=== PATIENT | female | born 1950 | race Caucasian/White ===

== ENCOUNTER → 2018-10-01 | Outpatient (REF) | payer MEDICARE ==
[2018-10-01 11:55] LABS: BASO # 0.1 10^3/uL (0.0-0.2); BASO % 0.8 % (0.0-1.0); EOS # 0.4 10^3/uL (0.0-0.50); EOS % 4.9 % (0.0-3.0); IMMATURE GRANULOCYTE % 0.5 % (0-3.0); LYMPH # 2.9 10^3/uL (1.5-4.5); LYMPH % 37.3 % (24.0-44.0); MEAN CORPUSCULAR HEMOGLOBIN 31.3 pg (27.0-33.0); MEAN CORPUSCULAR HGB CONC 33.3 g/dl (32.0-36.5); MEAN CORPUSCULAR VOLUME 93.8 fl (80.0-96.0); MONO # 0.6 10^3/uL (0.0-0.8); MONO % 8.2 % (0.0-5.0); NEUTROPHILS # 3.7 10^3/uL (1.8-7.7); NEUTROPHILS % 48.3 % (36.0-66.0); PLATELET COUNT, AUTOMATED 350 10^3/uL (150-450); RED BLOOD COUNT 5.76 10^6/uL (4.00-5.40); RED CELL DISTRIBUTION WIDTH 13.6 % (11.5-14.5); WHITE BLOOD COUNT 7.7 10^3/uL (4.0-10.0)
[2018-10-01 12:24] LABS: ALBUMIN 3.7 GM/DL (3.2-5.2); ALBUMIN/GLOBULIN RATIO 1.12 (1.00-1.93); ALKALINE PHOSPHATASE 89 U/L (45-117); ALT/SGPT 22 U/L (12-78); ANION GAP 4 MEQ/L (8-16); AST/SGOT 16 U/L (7-37); BILIRUBIN,TOTAL 0.5 MG/DL (0.2-1.0); BLOOD UREA NITROGEN 6 MG/DL (7-18); CALCIUM LEVEL 9.1 MG/DL (8.8-10.2); CARBON DIOXIDE LEVEL 31 MEQ/L (21-32); CHLORIDE LEVEL 101 MEQ/L (98-107); CHOLESTEROL LEVEL 250 MG/DL (<200); CREATININE FOR GFR 0.57 MG/DL (0.55-1.30); GLOMERULAR FILTRATION RATE > 60.0 (>45); GLUCOSE, FASTING 93 MG/DL (70-100); HDL CHOLESTEROL 58 MG/DL (>40); LDL CHOLESTEROL 169 MG/DL (<100); NON-HDL-C 192 MG/DL; POTASSIUM SERUM 5.1 MEQ/L (3.5-5.1); SODIUM LEVEL 136 MEQ/L (136-145); TRIGLYCERIDES LEVEL 116 MG/DL (<150)
[2018-10-01 12:57] LABS: ESTIMATED AVERAGE GLUCOSE 131 MG/DL (60-110); HEMOGLOBIN A1c 6.2 %
== END ==
LOC: M LABDRAW1 09:34
DX: Z79.899 Other long term (current) drug therapy (principal); E03.9 Hypothyroidism, unspecified; E78.00 Pure hypercholesterolemia, unspecified
CPT/HCPCS: 84443

== ENCOUNTER 2022-11-18 04:54 | Inpatient (IN) | payer MEDICARE, OTHER ==
[~2022-11-18] VITALS: Ht 152.4 cm; Wt 53.7 kg
[2022-11-18] MEDS ORDERED: methylPREDNISolone 125MG 2ML VIAL IV ONE (05:05)
[2022-11-18] MEDS ORDERED: IPRATROPIUM 0.5MG/ALBUTEROL 2.5MG INH SOL UD 3ML (DUONEB) NEB ONE (05:05)
[2022-11-18 06:31] LABS: BASO % 0.5 % (0.0-1.0); EOS # 0.3 10^3/uL (0.0-0.5); EOS % 3.9 % (0.0-3.0); HEMATOCRIT 34.4 % (36.0-47.0); HEMOGLOBIN 11.3 g/dl (12.0-15.5); LYMPH # 1.5 10^3/uL (1.5-5.0); LYMPH % 17.4 % (24.0-44.0); MEAN CORPUSCULAR HEMOGLOBIN 29.6 pg (27.0-33.0); MEAN CORPUSCULAR HGB CONC 32.8 g/dl (32.0-36.5); MEAN CORPUSCULAR VOLUME 90.1 fl (80.0-96.0); MONO # 0.8 10^3/uL (0.0-0.8); MONO % 9.5 % (2.0-8.0); NEUTROPHILS % 68.1 % (36.0-66.0); PLATELET COUNT, AUTOMATED 346 10^3/uL (150-450); RED BLOOD COUNT 3.82 10^6/uL (4.00-5.40); WHITE BLOOD COUNT 8.8 10^3/uL (4.0-10.0)
[2022-11-18 06:55] LABS: ALBUMIN 3.1 G/DL (3.2-5.2); ALKALINE PHOSPHATASE 78 U/L (46-116); ALT/SGPT 13 U/L (7.0-40); AST/SGOT 19 U/L (<34); BILIRUBIN,TOTAL < 0.2 MG/DL (0.3-1.2); BLOOD UREA NITROGEN 16 MG/DL (9-23); CALCIUM LEVEL 8.8 MG/DL (8.3-10.6); CARBON DIOXIDE LEVEL 26 MMOL/L (20-31); CHLORIDE LEVEL 103 MMOL/L (98-107); CREATININE FOR GFR 0.64 MG/DL (0.55-1.30); GLOMERULAR FILTRATION RATE > 60.0 (>39); GLUCOSE, FASTING 97 MG/DL (74-106); MAGNESIUM LEVEL 1.8 MG/DL (1.8-2.4); POTASSIUM SERUM 4.5 MMOL/L (3.5-5.1); SODIUM LEVEL 136 MMOL/L (136-145); TOTAL PROTEIN 6.5 G/DL (5.7-8.2)
[2022-11-18] MEDS ORDERED: ISOVUE-370 76% 100ML VIAL As Ordered ONE (07:45)
[2022-11-18] MEDS ORDERED: ALBU8.5H INH (08:57)
[2022-11-18] MEDS ORDERED: LISI30TA4 PO (08:57)
[2022-11-18] MEDS ORDERED: METO1TAB7 PO (08:57)
[2022-11-18] MEDS ORDERED: ATOR1TAB21 PO (08:57)
[2022-11-18] MEDS ORDERED: HOME MED LIST COMPLETE! XX SCH (10:20)
[2022-11-18] MEDS ORDERED: ALBUTEROL SULFATE 2.5MG/0.5ML INH NEB SOLN NEB PRN (12:10)
[2022-11-18] MEDS ORDERED: MOM 30ML SUSPENSION UDC PO PRN (12:10)
[2022-11-18] MEDS: ACETAMINOPHEN TAB 650MG DOSE (2X325MG) PO PRN (12:55)
[2022-11-18] MEDS: methylPREDNISolone 125MG 2ML VIAL IV SCH ×2 (12:59→20:01)
[2022-11-18] MEDS: METOPROLOL SUCC (TopROL XL) 50MG **XL** TAB PO SCH (13:01)
[2022-11-18] MEDS: IPRATROPIUM 0.5MG/ALBUTEROL 2.5MG INH SOL UD 3ML (DUONEB) NEB SCH ×2 (13:02→19:13)
[2022-11-18 13:50] VITALS: BP 152/60
[2022-11-18] MEDS: NICOTINE 7 MG/24 HR TRANSDERMAL TD SCH (16:09)
[2022-11-18] MEDS: ATORVASTATIN 20 MG TAB PO SCH (20:02)
[2022-11-18 20:40] VITALS: BP 134/56
[2022-11-19] MEDS: IPRATROPIUM 0.5MG/ALBUTEROL 2.5MG INH SOL UD 3ML (DUONEB) NEB SCH ×4 (01:23→19:11)
[2022-11-19] MEDS: ACETAMINOPHEN TAB 650MG DOSE (2X325MG) PO PRN ×2 (02:34→20:36)
[2022-11-19 05:00] VITALS: BP 142/54
[2022-11-19] MEDS: methylPREDNISolone 125MG 2ML VIAL IV SCH ×2 (06:07→14:51)
[2022-11-19 07:05] LABS: HEMATOCRIT 33.5 % (36.0-47.0); HEMOGLOBIN 10.7 g/dl (12.0-15.5); MEAN CORPUSCULAR HEMOGLOBIN 28.8 pg (27.0-33.0); MEAN CORPUSCULAR HGB CONC 31.9 g/dl (32.0-36.5); MEAN CORPUSCULAR VOLUME 90.1 fl (80.0-96.0); PLATELET COUNT, AUTOMATED 371 10^3/uL (150-450); RED BLOOD COUNT 3.72 10^6/uL (4.00-5.40)
[2022-11-19 07:39] LABS: BLOOD UREA NITROGEN 24 MG/DL (9-23); CALCIUM LEVEL 9.2 MG/DL (8.3-10.6); CARBON DIOXIDE LEVEL 24 MMOL/L (20-31); CHLORIDE LEVEL 102 MMOL/L (98-107); CREATININE FOR GFR 0.73 MG/DL (0.55-1.30); GLOMERULAR FILTRATION RATE > 60.0 (>39); GLUCOSE, FASTING 146 MG/DL (74-106); MAGNESIUM LEVEL 1.9 MG/DL (1.8-2.4); POTASSIUM SERUM 4.2 MMOL/L (3.5-5.1); SODIUM LEVEL 135 MMOL/L (136-145)
[2022-11-19] MEDS: METOPROLOL SUCC (TopROL XL) 50MG **XL** TAB PO SCH (08:39)
[2022-11-19] MEDS: NICOTINE 7 MG/24 HR TRANSDERMAL TD SCH (08:40)
[2022-11-19] MEDS: ENOXAPARIN 40MG/0.4ML SYRINGE (J1650 PER 10MG) SC SCH (08:40)
[2022-11-19 09:00] VITALS: O2SAT 91
[2022-11-19 09:51] LABS: CHOLESTEROL LEVEL 126 MG/DL (<200); CHOLESTEROL RISK RATIO 2.54 (<5); HDL CHOLESTEROL 49.5 MG/DL (>40); LDL CHOLESTEROL 61.5 MG/DL (<100); NON-HDL-C 77 MG/DL; TRIGLYCERIDES LEVEL 75 MG/DL (<150)
[2022-11-19 11:11] LABS: HEMOGLOBIN A1c 5.5 % (4.0-6.0)
[2022-11-19 14:00] VITALS: BP 126/58
[2022-11-19] MEDS: ATORVASTATIN 20 MG TAB PO SCH (20:35)
[2022-11-19 21:10] VITALS: BP 142/56
[2022-11-20] MEDS: IPRATROPIUM 0.5MG/ALBUTEROL 2.5MG INH SOL UD 3ML (DUONEB) NEB SCH ×4 (01:27→20:28)
[2022-11-20] MEDS ORDERED: methylPREDNISolone 125MG 2ML VIAL IV SCH (03:00)
[2022-11-20 04:50] VITALS: BP 132/60
[2022-11-20 05:48] LABS: HEMATOCRIT 32.2 % (36.0-47.0); HEMOGLOBIN 10.4 g/dl (12.0-15.5); MEAN CORPUSCULAR HEMOGLOBIN 28.9 pg (27.0-33.0); MEAN CORPUSCULAR HGB CONC 32.3 g/dl (32.0-36.5); MEAN CORPUSCULAR VOLUME 89.4 fl (80.0-96.0); PLATELET COUNT, AUTOMATED 328 10^3/uL (150-450); WHITE BLOOD COUNT 11.1 10^3/uL (4.0-10.0)
[2022-11-20] MEDS: ACETAMINOPHEN TAB 650MG DOSE (2X325MG) PO PRN ×3 (06:09→19:54)
[2022-11-20 06:20] LABS: ALBUMIN 2.9 G/DL (3.2-5.2); ALKALINE PHOSPHATASE 63 U/L (46-116); ALT/SGPT 15 U/L (7.0-40); AST/SGOT 25 U/L (<34); BILIRUBIN,TOTAL 0.3 MG/DL (0.3-1.2); BLOOD UREA NITROGEN 21 MG/DL (9-23); CALCIUM LEVEL 8.7 MG/DL (8.3-10.6); CARBON DIOXIDE LEVEL 25 MMOL/L (20-31); CHLORIDE LEVEL 98 MMOL/L (98-107); GLOMERULAR FILTRATION RATE > 60.0 (>39); GLUCOSE, FASTING 155 MG/DL (74-106); POTASSIUM SERUM 4.1 MMOL/L (3.5-5.1); SODIUM LEVEL 131 MMOL/L (136-145); TOTAL PROTEIN 5.9 G/DL (5.7-8.2)
[2022-11-20] MEDS: NS 1,000 ML IV SCH ×3 (08:22→23:42)
[2022-11-20] MEDS: ENOXAPARIN 40MG/0.4ML SYRINGE (J1650 PER 10MG) SC SCH ×2 (08:22→08:40)
[2022-11-20] MEDS: predniSONE 20 MG TAB PO SCH (08:22)
[2022-11-20] MEDS: NICOTINE 7 MG/24 HR TRANSDERMAL TD SCH (08:23)
[2022-11-20] MEDS: METOPROLOL SUCC (TopROL XL) 50MG **XL** TAB PO SCH (09:00)
[2022-11-20] MEDS: ATORVASTATIN 20 MG TAB PO SCH (19:53)
[2022-11-20 20:28] VITALS: O2SAT 97
[2022-11-20 23:13] VITALS: BP 188/70
[2022-11-20] MEDS ORDERED: TEMAZEPAM 7.5 MG CAP PO PRN (23:25)
[2022-11-20] MEDS ORDERED: MORPHINE 2 MG/ML 1ML VIAL IV PRN (23:25)
[2022-11-20] MEDS: traMADol 50 MG TAB PO PRN (23:43)
[2022-11-21] VITALS (7 sets, daily range): BP systolic 130–192; BP diastolic 60–92
[2022-11-21] MEDS: IPRATROPIUM 0.5MG/ALBUTEROL 2.5MG INH SOL UD 3ML (DUONEB) NEB SCH ×4 (02:03→20:28)
[2022-11-21] MEDS ORDERED: LORazepam 2 MG/ML VIAL IV ONE (04:45)
[2022-11-21 05:35] LABS: HEMATOCRIT 33.6 % (36.0-47.0); HEMOGLOBIN 10.5 g/dl (12.0-15.5); MEAN CORPUSCULAR HEMOGLOBIN 28.4 pg (27.0-33.0); MEAN CORPUSCULAR HGB CONC 31.3 g/dl (32.0-36.5); MEAN CORPUSCULAR VOLUME 90.8 fl (80.0-96.0); PLATELET COUNT, AUTOMATED 373 10^3/uL (150-450); WHITE BLOOD COUNT 12.4 10^3/uL (4.0-10.0)
[2022-11-21] MEDS: METOPROLOL SUCC (TopROL XL) 50MG **XL** TAB PO SCH (05:51)
[2022-11-21 06:19] LABS: ALKALINE PHOSPHATASE 57 U/L (46-116); ALT/SGPT 21 U/L (7.0-40); AST/SGOT 31 U/L (<34); BILIRUBIN,TOTAL 0.2 MG/DL (0.3-1.2); BLOOD UREA NITROGEN 16 MG/DL (9-23); CALCIUM LEVEL 8.3 MG/DL (8.3-10.6); CARBON DIOXIDE LEVEL 24 MMOL/L (20-31); CHLORIDE LEVEL 103 MMOL/L (98-107); CREATININE FOR GFR 0.53 MG/DL (0.55-1.30); GLOMERULAR FILTRATION RATE > 60.0 (>39); GLUCOSE, FASTING 100 MG/DL (74-106); POTASSIUM SERUM 4.1 MMOL/L (3.5-5.1); SODIUM LEVEL 134 MMOL/L (136-145); TOTAL PROTEIN 5.9 G/DL (5.7-8.2)
[2022-11-21] MEDS ORDERED: ISOSORBIDE DIN. (ISORDIL) 20 MG TAB PO SCH ×2 (09:00→21:00)
[2022-11-21] MEDS: NICOTINE 7 MG/24 HR TRANSDERMAL TD SCH (09:00)
[2022-11-21] MEDS ORDERED: AMLO1TAB25 PO (09:17)
[2022-11-21] MEDS ORDERED: PRED10TA2 PO (09:17)
[2022-11-21] MEDS ORDERED: ALBU6.7H6 INH (09:17)
[2022-11-21] MEDS ORDERED: NICO7PA TD (09:17)
[2022-11-21] MEDS ORDERED: DOXY100C3 PO (09:17)
[2022-11-21] MEDS ORDERED: FLUT11IN INH (09:18)
[2022-11-21] MEDS: ACETAMINOPHEN TAB 650MG DOSE (2X325MG) PO PRN (10:19)
[2022-11-21] MEDS: predniSONE 20 MG TAB PO SCH (10:20)
[2022-11-21] MEDS ORDERED: DOXY100T PO (11:36)
[2022-11-21] MEDS ORDERED: PRED20TA PO (11:36)
[2022-11-21] MEDS ORDERED: ALBU8.5H INH (11:36)
[2022-11-21] MEDS: ATORVASTATIN 20 MG TAB PO SCH (20:28)
[2022-11-21] MEDS: traMADol 50 MG TAB PO PRN (20:40)
[2022-11-22] VITALS (9 sets, daily range): BP systolic 103–144; BP diastolic 52–74; O2SAT 97–100
[2022-11-22] MEDS: IPRATROPIUM 0.5MG/ALBUTEROL 2.5MG INH SOL UD 3ML (DUONEB) NEB SCH ×4 (01:09→19:37)
[2022-11-22] MEDS: ACETAMINOPHEN TAB 650MG DOSE (2X325MG) PO PRN ×2 (04:52→20:32)
[2022-11-22] MEDS ORDERED: LIDOCAINE 1% MDV 20ML VIAL As Ordered ONE (08:24)
[2022-11-22] MEDS ORDERED: METOPROLOL SUCC (TopROL XL) 50MG **XL** TAB PO SCH (09:00)
[2022-11-22] MEDS: METOPROLOL SUCC (TopROL XL) 50MG **XL** TAB PO SCH (10:12)
[2022-11-22] MEDS: predniSONE 20 MG TAB PO SCH (10:13)
[2022-11-22] MEDS: NICOTINE 7 MG/24 HR TRANSDERMAL TD SCH (10:15)
[2022-11-22] MEDS: traMADol 50 MG TAB PO PRN (10:45)
[2022-11-22] MEDS ORDERED: methylPREDNISolone 125MG 2ML VIAL IV ONE (13:35)
[2022-11-22] MEDS ORDERED: ISOVUE-370 76% 100ML VIAL As Ordered ONE (13:37)
[2022-11-22] MEDS ORDERED: PERCOCET 5MG/325MG TAB PO PRN (13:40)
[2022-11-22] MEDS: ATORVASTATIN 20 MG TAB PO SCH (20:28)
[2022-11-23] MEDS: ACETAMINOPHEN TAB 650MG DOSE (2X325MG) PO PRN ×2 (00:40→07:48)
[2022-11-23] MEDS: IPRATROPIUM 0.5MG/ALBUTEROL 2.5MG INH SOL UD 3ML (DUONEB) NEB SCH ×2 (00:49→07:19)
[2022-11-23 05:52] VITALS: BP 133/58
[2022-11-23 06:17] LABS: BASO % 0.2 % (0.0-1.0); HEMATOCRIT 30.9 % (36.0-47.0); LYMPH # 0.7 10^3/uL (1.5-5.0); MEAN CORPUSCULAR HEMOGLOBIN 28.7 pg (27.0-33.0); MEAN CORPUSCULAR HGB CONC 32.4 g/dl (32.0-36.5); MEAN CORPUSCULAR VOLUME 88.8 fl (80.0-96.0); MONO # 0.2 10^3/uL (0.0-0.8); NEUTROPHILS # 4.7 10^3/uL (1.5-8.5); NEUTROPHILS % 82.9 % (36.0-66.0); PLATELET COUNT, AUTOMATED 311 10^3/uL (150-450); RED BLOOD COUNT 3.48 10^6/uL (4.00-5.40); WHITE BLOOD COUNT 5.7 10^3/uL (4.0-10.0)
[2022-11-23 07:03] LABS: BLOOD UREA NITROGEN 11 MG/DL (9-23); CALCIUM LEVEL 8.1 MG/DL (8.3-10.6); CARBON DIOXIDE LEVEL 29 MMOL/L (20-31); CHLORIDE LEVEL 99 MMOL/L (98-107); CREATININE FOR GFR 0.49 MG/DL (0.55-1.30); GLOMERULAR FILTRATION RATE > 60.0 (>39); GLUCOSE, FASTING 133 MG/DL (74-106); POTASSIUM SERUM 4.5 MMOL/L (3.5-5.1); SODIUM LEVEL 134 MMOL/L (136-145)
[2022-11-23 07:47] VITALS: BP 133/58
[2022-11-23] MEDS: METOPROLOL SUCC (TopROL XL) 50MG **XL** TAB PO SCH (07:47)
[2022-11-23] MEDS: NICOTINE 7 MG/24 HR TRANSDERMAL TD SCH (07:48)
[2022-11-23 10:37] VITALS: O2SAT 96
== END 2022-11-23 13:29 | disposition home health service (06) | DRG 181 ==
LOC: M ED 04:54 → M ED INP 12:09 → ENRESERV 13:27 → M MSPAV 13:58
PROVIDERS: ADMIT Internal Medicine; ATTEND General Practice
PROC: 0BBC3ZX Excision of Right Upper Lung Lobe, Percutaneous Approach, Diagnostic (ICD-10-PCS; principal; 2022-11-22 08:30)
DX: C34.11 Malignant neoplasm of upper lobe, right bronchus or lung (principal); T85.43XA Leakage of breast prosthesis and implant, initial encounter; J44.1 Chronic obstructive pulmonary disease with (acute) exacerbation; C79.51 Secondary malignant neoplasm of bone; F17.200 Nicotine dependence, unspecified, uncomplicated; I10 Essential (primary) hypertension; E78.5 Hyperlipidemia, unspecified; R73.03 Prediabetes; E03.9 Hypothyroidism, unspecified; Z79.899 Other long term (current) drug therapy; Z66 Do not resuscitate; Y83.1 Surgical operation with implant of artificial internal device as the cause of abnormal reaction of the patient, or of later complication, without mention of misadventure at the time of the procedure; I70.0 Atherosclerosis of aorta; I25.10 Atherosclerotic heart disease of native coronary artery without angina pectoris; R63.4 Abnormal weight loss

== ENCOUNTER 2022-12-01 10:37 | Outpatient (RCR) | payer MEDICARE ==
[~2022-12-01 10:37] MED LIST: ALBU6.7H6 INH; ALBU8.5H INH; AMLO1TAB25 PO; ATOR1TAB21 PO; DOXY100C3 PO; DOXY100T PO; FLUT11IN INH; LISI30TA4 PO; METO1TAB7 PO; NICO7PA TD; PRED10TA2 PO; PRED20TA PO
[2022-12-08] MEDS ORDERED: AMLO1TAB25 PO (01:11)
[2022-12-08] MEDS ORDERED: ALBU8.5H INH ×2 (01:11)
== END 2022-12-19 ==
LOC: M ONCR 10:37
PROVIDERS: ATTEND General Practice
DX: C34.11 Malignant neoplasm of upper lobe, right bronchus or lung (principal)

== ENCOUNTER 2022-12-07 17:12 | Inpatient (IN) | payer MEDICARE ==
[~2022-12-07] VITALS: Ht 152.4 cm; Wt 50.2 kg
[2022-12-07 18:32] LABS: BASO # 0.1 10^3/uL (0.0-0.2); BASO % 0.6 % (0.0-1.0); EOS # 0.2 10^3/uL (0.0-0.5); EOS % 2.8 % (0.0-3.0); HEMATOCRIT 30.9 % (36.0-47.0); HEMOGLOBIN 9.9 g/dl (12.0-15.5); LYMPH # 1.4 10^3/uL (1.5-5.0); LYMPH % 16.9 % (24.0-44.0); MEAN CORPUSCULAR HEMOGLOBIN 29.4 pg (27.0-33.0); MEAN CORPUSCULAR VOLUME 91.7 fl (80.0-96.0); MONO # 0.6 10^3/uL (0.0-0.8); MONO % 7.3 % (2.0-8.0); NEUTROPHILS % 71.6 % (36.0-66.0); PLATELET COUNT, AUTOMATED 349 10^3/uL (150-450); RED BLOOD COUNT 3.37 10^6/uL (4.00-5.40); WHITE BLOOD COUNT 8.4 10^3/uL (4.0-10.0)
[2022-12-07 19:00] LABS: CK-MB VALUE MASS < 1.0 NG/ML (<3.6); ETHYL ALCOHOL (ETHANOL) 0.006 % (0.000-0.010)
[2022-12-07 19:02] LABS: ACETAMINOPHEN LEVEL < 2.0 UG/ML (10.0-20.0); CPK CREATINE PHOSPHOKINASE 40 U/L (34-145); SALICYLATE LEVEL 32.4 MG/DL (<30)
[2022-12-07 19:04] LABS: THYROID STIMULATING HORMONE 0.447 uIU/ML (0.55-4.78)
[2022-12-07 19:12] LABS: OSMOLALITY SERUM 291 MOSM/KG (280-301)
[2022-12-07 19:14] LABS: ALBUMIN 2.9 G/DL (3.2-5.2); ALKALINE PHOSPHATASE 82 U/L (46-116); ALT/SGPT 9 U/L (7.0-40); AST/SGOT 12 U/L (<34); BILIRUBIN,DIRECT 0.1 MG/DL (<0.4); BILIRUBIN,TOTAL 0.2 MG/DL (0.3-1.2); BLOOD UREA NITROGEN 20 MG/DL (9-23); CALCIUM LEVEL 8.4 MG/DL (8.3-10.6); CARBON DIOXIDE LEVEL 25 MMOL/L (20-31); CHLORIDE LEVEL 109 MMOL/L (98-107); CREATININE FOR GFR 0.63 MG/DL (0.55-1.30); GLOMERULAR FILTRATION RATE > 60.0 (>39); GLUCOSE, FASTING 77 MG/DL (74-106); POTASSIUM SERUM 3.8 MMOL/L (3.5-5.1); SODIUM LEVEL 142 MMOL/L (136-145); TOTAL PROTEIN 5.8 G/DL (5.7-8.2)
[2022-12-07 19:23] LABS: RSV AMPLIFICATION NEGATIVE (NEGATIVE)
[2022-12-07 21:00] LABS: ABG BASE EXCESS -1.9 (-2.0-2.0); ABG HCO3 22.5 MEQ/L (22.0-26.0); ABG O2 SATURATION 95.9 % (95.0-99.0); ABG PARTIAL PRESSURE CO2 36.7 mmHg (35.0-45.0); ABG PARTIAL PRESSURE O2 81.7 mmHg (75.0-100.0); ABG STANDARD HCO3 22.9 MEQ/L (22.0-26.0); ABG TOTAL CO2 23.6 MEQ/L (23.0-31.0); ABG pH (ARTERIAL) 7.405 UNITS (7.350-7.450)
[2022-12-07] MEDS ORDERED: ATORVASTATIN 20 MG TAB PO SCH (21:00)
[2022-12-07] MEDS ORDERED: ISOVUE-370 76% 100ML VIAL As Ordered ONE (21:01)
[2022-12-07 21:23] LABS: AMPHETAMINES LEVEL URINE NEGATIVE (NEGATIVE); BARBITURATES URINE NEGATIVE (NEGATIVE); CANNABINOIDS URINE NEGATIVE (NEGATIVE); COCAINE METABOLITE URINE NEGATIVE (NEGATIVE); METHADONE URINE NEGATIVE (NEGATIVE); OPIATES URINE NEGATIVE (NEGATIVE); PHENCYCLIDINE URINE NEGATIVE (NEGATIVE)
[2022-12-07 21:24] LABS: BENZODIAZEPINES URINE NEGATIVE (NEGATIVE)
[2022-12-07] MEDS: COMBIVENT RESPIMAT 100-20MCG INHALER 4GM INH SCH ×3 (23:09→23:30)
[2022-12-07 23:12] LABS: CK-MB VALUE MASS < 1.0 NG/ML (<3.6); CPK CREATINE PHOSPHOKINASE 34 U/L (34-145); MB/CK RELATIVE INDEX 2.94 (< OR =4); SALICYLATE LEVEL 34.7 MG/DL (<30)
[2022-12-07] MEDS ORDERED: NS 1,000 ML IV ONE (23:50)
[2022-12-08] VITALS (48 sets, daily range): BP systolic 80–220; BP diastolic 47–109; O2SAT 86–94
[2022-12-08] MEDS ORDERED: LR 1,000 ML IV SCH (00:30)
[2022-12-08] MEDS ORDERED: LORazepam 2 MG TAB PO PRN (00:30)
[2022-12-08] MEDS ORDERED: UNRESOLVED CLARIFICATION ENTRY XX STA (00:47)
[2022-12-08] MEDS ORDERED: AMLO1TAB25 PO (01:11)
[2022-12-08] MEDS ORDERED: ALBU8.5H INH ×2 (01:11)
[2022-12-08] MEDS ORDERED: HOME MED LIST COMPLETE! XX SCH (01:15)
[2022-12-08] MEDS ORDERED: ALBUTEROL 90 MCG/ACT 8GM HFA INHALER INH PRN (01:15)
[2022-12-08] MEDS: THIAMINE 200MG 2ML VIAL IV SCH (03:43)
[2022-12-08] MEDS: ACETAMINOPHEN TAB 650MG DOSE (2X325MG) PO PRN ×2 (03:43→23:47)
[2022-12-08] MEDS: IPRATROPIUM 0.5MG/ALBUTEROL 2.5MG INH SOL UD 3ML (DUONEB) NEB PRN ×2 (04:12→09:12)
[2022-12-08 05:34] LABS: HEMOGLOBIN 8.5 g/dl (12.0-15.5); MEAN CORPUSCULAR HEMOGLOBIN 28.8 pg (27.0-33.0); MEAN CORPUSCULAR HGB CONC 31.5 g/dl (32.0-36.5); MEAN CORPUSCULAR VOLUME 91.5 fl (80.0-96.0); PLATELET COUNT, AUTOMATED 301 10^3/uL (150-450); RED BLOOD COUNT 2.95 10^6/uL (4.00-5.40); WHITE BLOOD COUNT 7.6 10^3/uL (4.0-10.0)
[2022-12-08 06:04] LABS: SALICYLATE LEVEL 21.2 MG/DL (<30)
[2022-12-08 06:10] LABS: ALBUMIN 2.5 G/DL (3.2-5.2); ALKALINE PHOSPHATASE 68 U/L (46-116); ALT/SGPT < 9 U/L (7.0-40); AST/SGOT 11 U/L (<34); BILIRUBIN,TOTAL 0.2 MG/DL (0.3-1.2); BLOOD UREA NITROGEN 18 MG/DL (9-23); CALCIUM LEVEL 8.1 MG/DL (8.3-10.6); CARBON DIOXIDE LEVEL 25 MMOL/L (20-31); CHLORIDE LEVEL 109 MMOL/L (98-107); CREATININE FOR GFR 0.57 MG/DL (0.55-1.30); GLOMERULAR FILTRATION RATE > 60.0 (>39); GLUCOSE, FASTING 93 MG/DL (74-106); MAGNESIUM LEVEL 1.7 MG/DL (1.8-2.4); POTASSIUM SERUM 3.5 MMOL/L (3.5-5.1); SODIUM LEVEL 141 MMOL/L (136-145)
[2022-12-08] MEDS ORDERED: cefTRIAXone SOD 1 GM in D5W MINI-BAG PLUS 50 ML IV SCH (08:00)
[2022-12-08] MEDS ORDERED: ALBUTEROL SULFATE 2.5MG/0.5ML INH NEB SOLN NEB SCH (08:00)
[2022-12-08] MEDS: BUDESONIDE 0.5 MG/2 ML INHALATION SUSPENSION INH SCH ×2 (08:00→19:25)
[2022-12-08] MEDS ORDERED: ENOXAPARIN 40MG/0.4ML SYRINGE (J1650 PER 10MG) SC SCH (09:00)
[2022-12-08] MEDS ORDERED: METOPROLOL SUCC (TopROL XL) 50MG **XL** TAB PO SCH (09:00)
[2022-12-08 10:26] LABS: ABG BASE EXCESS -2.4 (-2.0-2.0); ABG HCO3 23.7 MEQ/L (22.0-26.0); ABG O2 SATURATION 96.7 % (95.0-99.0); ABG PARTIAL PRESSURE O2 97.9 mmHg (75.0-100.0); ABG STANDARD HCO3 22.4 MEQ/L (22.0-26.0); ABG TOTAL CO2 25.2 MEQ/L (23.0-31.0); ABG pH (ARTERIAL) 7.321 UNITS (7.350-7.450)
[2022-12-08] MEDS ORDERED: ALBUTEROL SULFATE 2.5MG/0.5ML INH NEB SOLN NEB STA (10:50)
[2022-12-08] MEDS ORDERED: methylPREDNISolone 125MG 2ML VIAL IV SCH (11:00)
[2022-12-08] MEDS: D5W/0.9% SODIUM CHLORIDE 1,000 ML IV SCH ×2 (11:08→15:53)
[2022-12-08] MEDS: IPRATROPIUM 0.5MG/ALBUTEROL 2.5MG INH SOL UD 3ML (DUONEB) NEB SCH ×4 (12:00→23:26)
[2022-12-08] MEDS ORDERED: ALBUTEROL SULFATE 2.5MG/0.5ML INH NEB SOLN NEB PRN (13:15)
[2022-12-08] MEDS: FORMOTEROL FUMARATE 20 MCG/2 ML INHALATION SOLUTION (PERFOROMIST) INH SCH ×2 (15:07→19:25)
[2022-12-08] MEDS ORDERED: hydrALAZINE 20MG/ML 1ML VIAL IV ONE (15:40)
[2022-12-08] MEDS ORDERED: MAG SULF 1GM/100ML (MAG RUN) 1 GM in IV 1 EA IV ONE ×2 (15:45→18:00)
[2022-12-08] MEDS ORDERED: VANCOMYCIN HCL 1,000 MG, VIAL MATE ADAPTER 1 EACH in NS 250 ML IV SCH (15:45)
[2022-12-08] MEDS ORDERED: BUMETANIDE 1MG/4ML VIAL IV ONE (15:50)
[2022-12-08 16:32] LABS: ABG BASE EXCESS -5.7 (-2.0-2.0); ABG HCO3 23.8 MEQ/L (22.0-26.0); ABG O2 SATURATION 36.8 % (95.0-99.0); ABG STANDARD HCO3 18.7 MEQ/L (22.0-26.0); ABG TOTAL CO2 25.9 MEQ/L (23.0-31.0)
[2022-12-08 16:35] LABS: ABG PARTIAL PRESSURE CO2 70.1 mmHg (35.0-45.0); ABG PARTIAL PRESSURE O2 25.9 mmHg (75.0-100.0); ABG pH (ARTERIAL) 7.148 UNITS (7.350-7.450)
[2022-12-08] MEDS ORDERED: MIDAZOLAM 100MG/100ML-0.9%NACL 100 MG in IV 1 EA IV SCH (16:50)
[2022-12-08] MEDS ORDERED: ETOMIDATE INJ 20MG/10ML VIAL IV STA (16:57)
[2022-12-08] MEDS ORDERED: SUCCINYLCHOLINE INJ 200MG/10ML VIAL IV STA (16:57)
[2022-12-08] MEDS ORDERED: PROPOFOL 1,000 MG/100 ML VIAL As Ordered ONE (17:02)
[2022-12-08] MEDS: propofoL 1,000 MG in IV 1 EA IV SCH (17:15)
[2022-12-08 17:17] LABS: HEMATOCRIT 32.8 % (36.0-47.0); HEMOGLOBIN 10.4 g/dl (12.0-15.5)
[2022-12-08 17:44] LABS: CK-MB VALUE MASS 1.7 NG/ML (<3.6)
[2022-12-08 17:48] LABS: CPK CREATINE PHOSPHOKINASE 60 U/L (34-145); MB/CK RELATIVE INDEX 2.83 (< OR =4)
[2022-12-08 17:53] LABS: ABG BASE EXCESS -6.2 (-2.0-2.0); ABG HCO3 19.3 MEQ/L (22.0-26.0); ABG O2 SATURATION 98.3 % (95.0-99.0); ABG PARTIAL PRESSURE CO2 38.1 mmHg (35.0-45.0); ABG PARTIAL PRESSURE O2 135.6 mmHg (75.0-100.0); ABG STANDARD HCO3 19.4 MEQ/L (22.0-26.0); ABG TOTAL CO2 20.4 MEQ/L (23.0-31.0); ABG pH (ARTERIAL) 7.322 UNITS (7.350-7.450)
[2022-12-08] MEDS ORDERED: PANTOPRAZOLE 40MG VIAL IV SCH (18:00)
[2022-12-08] MEDS ORDERED: POTASSIUM CHLORIDE 10% LIQ 20MEQ/15ML UDC NG ONE (18:00)
[2022-12-08] MEDS ORDERED: VANCOMYCIN HCL 1,000 MG, VIAL MATE ADAPTER 1 EACH in NS 250 ML IV ONE (18:00)
[2022-12-08] MEDS ORDERED: FUROSEMIDE 100MG/10ML VIAL IV ONE (18:00)
[2022-12-08] MEDS: FOLIC ACID 1MG TAB PO SCH (18:15)
[2022-12-08] MEDS: MULTIVITAMINS/MINERALS THERAP 1 TAB PO SCH (18:16)
[2022-12-08 18:18] LABS: ALBUMIN 2.8 G/DL (3.2-5.2); BLOOD UREA NITROGEN 16 MG/DL (9-23); CALCIUM LEVEL 8.1 MG/DL (8.3-10.6); CARBON DIOXIDE LEVEL 22 MMOL/L (20-31); CHLORIDE LEVEL 108 MMOL/L (98-107); CREATININE FOR GFR 0.44 MG/DL (0.55-1.30); FREE T4 0.89 NG/DL (0.89-1.76); GLOMERULAR FILTRATION RATE > 60.0 (>39); GLUCOSE, FASTING 200 MG/DL (74-106); PHOSPHORUS LEVEL 4.2 MG/DL (2.4-5.1); POTASSIUM SERUM 4.4 MMOL/L (3.5-5.1); SODIUM LEVEL 140 MMOL/L (136-145)
[2022-12-08 19:06] LABS: CHOLESTEROL RISK RATIO 2.78 (<5); HDL CHOLESTEROL 44.6 MG/DL (>40); LDL CHOLESTEROL 62.2 MG/DL (<100)
[2022-12-08] MEDS ORDERED: ASPIRIN 300 MG SUPP PR ONE (19:10)
[2022-12-08] MEDS ORDERED: hydrALAZINE 20MG/ML 1ML VIAL IV SCH (20:00)
[2022-12-08] MEDS ORDERED: cefTRIAXone SOD 1 GM in D5W MINI-BAG PLUS 50 ML IV ONE (20:00)
[2022-12-08] MEDS ORDERED: IPRATROPIUM 0.5MG/ALBUTEROL 2.5MG INH SOL UD 3ML (DUONEB) NEB SCH (20:00)
[2022-12-08] MEDS: CHLORHEXIDINE GLUCONATE 0.12 % 15ML UDC (PERIDEX ORAL RINSE) MT SCH (20:14)
[2022-12-08] MEDS: MIDAZOLAM INJ 2MG/2ML VIAL IV PRN ×2 (20:48→23:21)
[2022-12-08] MEDS: MIDAZOLAM 100MG/100ML-0.9%NACL 100 MG in IV 1 EA IV SCH (22:21)
[2022-12-09] VITALS (86 sets, daily range): BP systolic 70–134; BP diastolic 42–73; O2SAT 98
[2022-12-09] MEDS: NOREPINEPHRINE 4MG IN D5 250ML 4 MG in IV 1 EA IV SCH ×6 (01:15→17:17)
[2022-12-09 01:27] LABS: VENOUS BASE EXCESS 2.3 (-2.0-2.0); VENOUS HCO3 24.9 MEQ/L (23.0-27.0); VENOUS O2 SATURATION 92.1 % (60.0-80.0); VENOUS PARTIAL PRESSURE CO2 31.3 mmHg (38.0-50.0); VENOUS PARTIAL PRESSURE O2 56.5 mmHg (30.0-50.0); VENOUS PH 7.518 UNITS (7.330-7.430); VENOUS STANDARD HCO3 26.4 MEQ/L; VENOUS TOTAL CO2 25.8 MEQ/L (24.0-28.0)
[2022-12-09] MEDS: VANCOMYCIN HCL 750 MG, VIAL MATE ADAPTER 1 EACH in D5W 250 ML IV SCH ×2 (02:02→14:05)
[2022-12-09] MEDS: MIDAZOLAM INJ 2MG/2ML VIAL IV PRN ×7 (02:59→19:54)
[2022-12-09] MEDS: IPRATROPIUM 0.5MG/ALBUTEROL 2.5MG INH SOL UD 3ML (DUONEB) NEB SCH ×6 (04:04→23:20)
[2022-12-09] MEDS: propofoL 1,000 MG in IV 1 EA IV SCH ×2 (04:14→17:00)
[2022-12-09] MEDS: THIAMINE 200MG 2ML VIAL IV SCH (04:21)
[2022-12-09 04:30] LABS: BASO % 0.2 % (0.0-1.0); HEMATOCRIT 29.7 % (36.0-47.0); HEMOGLOBIN 9.5 g/dl (12.0-15.5); LYMPH # 0.7 10^3/uL (1.5-5.0); LYMPH % 6.3 % (24.0-44.0); MEAN CORPUSCULAR HEMOGLOBIN 28.8 pg (27.0-33.0); MONO # 0.9 10^3/uL (0.0-0.8); MONO % 8.3 % (2.0-8.0); NEUTROPHILS # 8.7 10^3/uL (1.5-8.5); NEUTROPHILS % 84.5 % (36.0-66.0); PLATELET COUNT, AUTOMATED 366 10^3/uL (150-450); WHITE BLOOD COUNT 10.3 10^3/uL (4.0-10.0)
[2022-12-09 05:03] LABS: BLOOD UREA NITROGEN 15 MG/DL (9-23); CALCIUM LEVEL 8.2 MG/DL (8.3-10.6); CARBON DIOXIDE LEVEL 25 MMOL/L (20-31); CHLORIDE LEVEL 104 MMOL/L (98-107); CREATININE FOR GFR 0.59 MG/DL (0.55-1.30); GLOMERULAR FILTRATION RATE > 60.0 (>39); GLUCOSE, FASTING 179 MG/DL (74-106); SODIUM LEVEL 138 MMOL/L (136-145)
[2022-12-09 05:20] LABS: MAGNESIUM LEVEL 1.8 MG/DL (1.8-2.4)
[2022-12-09] MEDS: KCL 10MEQ/100ML SWI (KRUN) 10 MEQ in IV 1 EA IV SCH ×4 (05:36→10:25)
[2022-12-09 05:52] LABS: ABG BASE EXCESS 1.6 (-2.0-2.0); ABG HCO3 24.5 MEQ/L (22.0-26.0); ABG O2 SATURATION 98.4 % (95.0-99.0); ABG PARTIAL PRESSURE CO2 32.4 mmHg (35.0-45.0); ABG PARTIAL PRESSURE O2 135.6 mmHg (75.0-100.0); ABG STANDARD HCO3 25.9 MEQ/L (22.0-26.0); ABG TOTAL CO2 25.5 MEQ/L (23.0-31.0); ABG pH (ARTERIAL) 7.497 UNITS (7.350-7.450)
[2022-12-09] MEDS: MORPHINE 2 MG/ML 1ML VIAL IV PRN ×2 (06:34→18:31)
[2022-12-09] MEDS: FORMOTEROL FUMARATE 20 MCG/2 ML INHALATION SOLUTION (PERFOROMIST) INH SCH (07:13)
[2022-12-09] MEDS: BUDESONIDE 0.5 MG/2 ML INHALATION SUSPENSION INH SCH ×2 (07:13→19:44)
[2022-12-09] MEDS ORDERED: DEXTROSE 50% 50ML SYRINGE IV PRN (07:25)
[2022-12-09] MEDS ORDERED: INSULIN LISPRO (NovoLOG) PER UNIT SC SCH (07:25)
[2022-12-09] MEDS ORDERED: GLUCOSE 4GM CHEW TABLET PO PRN (07:25)
[2022-12-09] MEDS ORDERED: GLUCAGON INJ 1MG VIAL SC PRN (07:25)
[2022-12-09] MEDS ORDERED: HEPARIN SOD (PORCINE) 5000UNITS/ML 1ML VIAL/SYRINGE IV PRN (07:30)
[2022-12-09] MEDS ORDERED: ASPIRIN 81MG CHEW TABLET PO ONE (08:00)
[2022-12-09 08:33] LABS: HEMATOCRIT 28.6 % (36.0-47.0); HEMOGLOBIN 9.5 g/dl (12.0-15.5); MEAN CORPUSCULAR HEMOGLOBIN 29.5 pg (27.0-33.0); MEAN CORPUSCULAR HGB CONC 33.2 g/dl (32.0-36.5); MEAN CORPUSCULAR VOLUME 88.8 fl (80.0-96.0); PLATELET COUNT, AUTOMATED 386 10^3/uL (150-450); RED BLOOD COUNT 3.22 10^6/uL (4.00-5.40); WHITE BLOOD COUNT 12.8 10^3/uL (4.0-10.0)
[2022-12-09] MEDS: CHLORHEXIDINE GLUCONATE 0.12 % 15ML UDC (PERIDEX ORAL RINSE) MT SCH ×2 (08:46→20:28)
[2022-12-09] MEDS: ATORVASTATIN 20 MG TAB NG SCH (08:46)
[2022-12-09] MEDS: MULTIVITAMINS/MINERALS THERAP 1 TAB PO SCH (08:47)
[2022-12-09] MEDS: FOLIC ACID 1MG TAB PO SCH (08:47)
[2022-12-09] MEDS: PANTOPRAZOLE 40MG VIAL IV SCH (08:47)
[2022-12-09] MEDS: cefTRIAXone SOD 2 GM in D5W MINI-BAG PLUS 50 ML IV SCH (08:47)
[2022-12-09] MEDS ORDERED: PANTOPRAZOLE 40MG TAB (PROTONIX) PO SCH (09:00)
[2022-12-09] MEDS ORDERED: HEPARIN SOD (PORCINE) 5000UNITS/ML 1ML VIAL/SYRINGE IV ONE (09:00)
[2022-12-09] MEDS: HEPARIN DRIP 25,000 UNITS in IV 1 EA IV SCH (09:20)
[2022-12-09] MEDS: INSULIN LISPRO (NovoLOG) PER UNIT SC SCH ×4 (09:29→23:36)
[2022-12-09 17:57] LABS: BLOOD UREA NITROGEN 14 MG/DL (9-23); CALCIUM LEVEL 7.8 MG/DL (8.3-10.6); CARBON DIOXIDE LEVEL 26 MMOL/L (20-31); CHLORIDE LEVEL 103 MMOL/L (98-107); CREATININE FOR GFR 0.62 MG/DL (0.55-1.30); GLOMERULAR FILTRATION RATE > 60.0 (>39); GLUCOSE, FASTING 185 MG/DL (74-106); POTASSIUM SERUM 2.9 MMOL/L (3.5-5.1); SODIUM LEVEL 138 MMOL/L (136-145)
[2022-12-09] MEDS ORDERED: KCL 20MEQ IN 100ML SWI (KRUN) 20 MEQ in IV 1 EA IV ONE ×4 (18:00→19:00)
[2022-12-09] MEDS ORDERED: MAG SULF 1GM/100ML (MAG RUN) 1 GM in IV 1 EA IV ONE (18:30)
[2022-12-09] MEDS ORDERED: POTASSIUM CHLORIDE 10% LIQ 20MEQ/15ML UDC PO ONE (18:30)
[2022-12-09 18:38] LABS: MAGNESIUM LEVEL 1.9 MG/DL (1.8-2.4)
[2022-12-09] MEDS: NEUTRA-PHOS 1.5 GM PACKET PO SCH (20:30)
[2022-12-09 22:05] LABS: BLOOD UREA NITROGEN 10 MG/DL (9-23); CALCIUM LEVEL 7.9 MG/DL (8.3-10.6); CARBON DIOXIDE LEVEL 27 MMOL/L (20-31); CHLORIDE LEVEL 104 MMOL/L (98-107); CREATININE FOR GFR 0.55 MG/DL (0.55-1.30); GLOMERULAR FILTRATION RATE > 60.0 (>39); GLUCOSE, FASTING 144 MG/DL (74-106); MAGNESIUM LEVEL 2.1 MG/DL (1.8-2.4); PHOSPHORUS LEVEL 1.2 MG/DL (2.4-5.1); POTASSIUM SERUM 3.8 MMOL/L (3.5-5.1); SODIUM LEVEL 137 MMOL/L (136-145)
[2022-12-09] MEDS: MIDAZOLAM 100MG/100ML-0.9%NACL 100 MG in IV 1 EA IV SCH (22:13)
[2022-12-10] VITALS (78 sets, daily range): BP systolic 60–144; BP diastolic 41–81
[2022-12-10] MEDS ORDERED: POTASSIUM PHOSPHATE INJ 15 MMOL in D5W 250 ML IV ONE ×2
[2022-12-10] MEDS: NOREPINEPHRINE 4MG IN D5 250ML 4 MG in IV 1 EA IV SCH ×4 (01:00→12:32)
[2022-12-10] MEDS: VANCOMYCIN HCL 750 MG, VIAL MATE ADAPTER 1 EACH in D5W 250 ML IV SCH (01:52)
[2022-12-10] MEDS: MIDAZOLAM INJ 2MG/2ML VIAL IV PRN ×3 (02:11→16:24)
[2022-12-10] MEDS: MORPHINE 2 MG/ML 1ML VIAL IV PRN ×2 (03:53→19:18)
[2022-12-10] MEDS: IPRATROPIUM 0.5MG/ALBUTEROL 2.5MG INH SOL UD 3ML (DUONEB) NEB SCH ×6 (04:00→23:01)
[2022-12-10] MEDS: propofoL 1,000 MG in IV 1 EA IV SCH (05:00)
[2022-12-10] MEDS: INSULIN LISPRO (NovoLOG) PER UNIT SC SCH ×3 (05:08→18:00)
[2022-12-10] MEDS: THIAMINE 200MG 2ML VIAL IV SCH (05:43)
[2022-12-10 06:23] LABS: ABG BASE EXCESS 1.5 (-2.0-2.0); ABG HCO3 24.3 MEQ/L (22.0-26.0); ABG O2 SATURATION 97.2 % (95.0-99.0); ABG PARTIAL PRESSURE O2 94.8 mmHg (75.0-100.0); ABG STANDARD HCO3 25.8 MEQ/L (22.0-26.0); ABG TOTAL CO2 25.3 MEQ/L (23.0-31.0); ABG pH (ARTERIAL) 7.499 UNITS (7.350-7.450)
[2022-12-10] MEDS: BUDESONIDE 0.5 MG/2 ML INHALATION SUSPENSION INH SCH (07:16)
[2022-12-10 07:18] LABS: BLOOD UREA NITROGEN 9 MG/DL (9-23); CALCIUM LEVEL 7.9 MG/DL (8.3-10.6); CARBON DIOXIDE LEVEL 28 MMOL/L (20-31); CHLORIDE LEVEL 104 MMOL/L (98-107); CREATININE FOR GFR 0.52 MG/DL (0.55-1.30); GLOMERULAR FILTRATION RATE > 60.0 (>39); GLUCOSE, FASTING 121 MG/DL (74-106); POTASSIUM SERUM 4.2 MMOL/L (3.5-5.1); SODIUM LEVEL 137 MMOL/L (136-145)
[2022-12-10] MEDS: ATORVASTATIN 20 MG TAB NG SCH (08:10)
[2022-12-10] MEDS: CHLORHEXIDINE GLUCONATE 0.12 % 15ML UDC (PERIDEX ORAL RINSE) MT SCH ×2 (08:10→20:58)
[2022-12-10] MEDS: ASPIRIN 81MG CHEW TABLET PO SCH (08:10)
[2022-12-10] MEDS: NEUTRA-PHOS 1.5 GM PACKET PO SCH ×2 (08:10→20:58)
[2022-12-10] MEDS: MULTIVITAMINS/MINERALS THERAP 1 TAB PO SCH (08:10)
[2022-12-10] MEDS: cefTRIAXone SOD 2 GM in D5W MINI-BAG PLUS 50 ML IV SCH (08:10)
[2022-12-10] MEDS: PANTOPRAZOLE 40MG VIAL IV SCH (08:10)
[2022-12-10] MEDS: FOLIC ACID 1MG TAB PO SCH (08:10)
[2022-12-10 08:26] LABS: BASO % 0.4 % (0.0-1.0); EOS # 0.4 10^3/uL (0.0-0.5); EOS % 3.5 % (0.0-3.0); HEMATOCRIT 28.5 % (36.0-47.0); HEMOGLOBIN 9.3 g/dl (12.0-15.5); LYMPH # 2.2 10^3/uL (1.5-5.0); LYMPH % 21.7 % (24.0-44.0); MEAN CORPUSCULAR HEMOGLOBIN 29.1 pg (27.0-33.0); MEAN CORPUSCULAR HGB CONC 32.6 g/dl (32.0-36.5); MEAN CORPUSCULAR VOLUME 89.1 fl (80.0-96.0); MONO % 9.4 % (2.0-8.0); NEUTROPHILS # 6.7 10^3/uL (1.5-8.5); NEUTROPHILS % 64.6 % (36.0-66.0); PLATELET COUNT, AUTOMATED 339 10^3/uL (150-450); WHITE BLOOD COUNT 10.3 10^3/uL (4.0-10.0)
[2022-12-10] MEDS: HEPARIN DRIP 25,000 UNITS in IV 1 EA IV SCH (14:24)
[2022-12-10] MEDS: MIDAZOLAM 100MG/100ML-0.9%NACL 100 MG in IV 1 EA IV SCH (20:59)
[2022-12-11] VITALS (88 sets, daily range): BP systolic 72–162; BP diastolic 41–74
[2022-12-11] MEDS: NOREPINEPHRINE 4MG IN D5 250ML 4 MG in IV 1 EA IV SCH ×2 (00:10)
[2022-12-11] MEDS: MORPHINE 2 MG/ML 1ML VIAL IV PRN (03:05)
[2022-12-11] MEDS: IPRATROPIUM 0.5MG/ALBUTEROL 2.5MG INH SOL UD 3ML (DUONEB) NEB SCH ×6 (04:13→23:21)
[2022-12-11 05:21] LABS: BASO % 0.2 % (0.0-1.0); EOS # 0.6 10^3/uL (0.0-0.5); EOS % 7.1 % (0.0-3.0); HEMATOCRIT 28.8 % (36.0-47.0); HEMOGLOBIN 9.2 g/dl (12.0-15.5); LYMPH # 1.9 10^3/uL (1.5-5.0); LYMPH % 21.2 % (24.0-44.0); MEAN CORPUSCULAR HEMOGLOBIN 28.2 pg (27.0-33.0); MEAN CORPUSCULAR HGB CONC 31.9 g/dl (32.0-36.5); MEAN CORPUSCULAR VOLUME 88.3 fl (80.0-96.0); MONO % 11.3 % (2.0-8.0); NEUTROPHILS # 5.3 10^3/uL (1.5-8.5); NEUTROPHILS % 59.6 % (36.0-66.0); PLATELET COUNT, AUTOMATED 331 10^3/uL (150-450); RED BLOOD COUNT 3.26 10^6/uL (4.00-5.40); WHITE BLOOD COUNT 8.8 10^3/uL (4.0-10.0)
[2022-12-11 05:53] LABS: BLOOD UREA NITROGEN 7 MG/DL (9-23); CALCIUM LEVEL 8.2 MG/DL (8.3-10.6); CARBON DIOXIDE LEVEL 27 MMOL/L (20-31); CHLORIDE LEVEL 102 MMOL/L (98-107); CREATININE FOR GFR 0.52 MG/DL (0.55-1.30); GLOMERULAR FILTRATION RATE > 60.0 (>39); GLUCOSE, FASTING 114 MG/DL (74-106); PHOSPHORUS LEVEL 4.3 MG/DL (2.4-5.1); POTASSIUM SERUM 3.7 MMOL/L (3.5-5.1); SODIUM LEVEL 135 MMOL/L (136-145)
[2022-12-11 06:15] LABS: ABG HCO3 25.1 MEQ/L (22.0-26.0); ABG PARTIAL PRESSURE CO2 33.8 mmHg (35.0-45.0); ABG PARTIAL PRESSURE O2 66.3 mmHg (75.0-100.0); ABG STANDARD HCO3 26.1 MEQ/L (22.0-26.0); ABG TOTAL CO2 26.2 MEQ/L (23.0-31.0); ABG pH (ARTERIAL) 7.489 UNITS (7.350-7.450)
[2022-12-11] MEDS: INSULIN LISPRO (NovoLOG) PER UNIT SC SCH ×4 (07:06→18:57)
[2022-12-11] MEDS: cefTRIAXone SOD 2 GM in D5W MINI-BAG PLUS 50 ML IV SCH (08:49)
[2022-12-11] MEDS: ATORVASTATIN 20 MG TAB NG SCH (08:50)
[2022-12-11] MEDS: PANTOPRAZOLE 40MG VIAL IV SCH (08:50)
[2022-12-11] MEDS: MULTIVITAMINS/MINERALS THERAP 1 TAB PO SCH (08:50)
[2022-12-11] MEDS: FOLIC ACID 1MG TAB PO SCH (08:50)
[2022-12-11] MEDS: CHLORHEXIDINE GLUCONATE 0.12 % 15ML UDC (PERIDEX ORAL RINSE) MT SCH ×2 (08:50→21:05)
[2022-12-11] MEDS: ASPIRIN 81MG CHEW TABLET PO SCH (08:50)
[2022-12-11] MEDS: MIDAZOLAM INJ 2MG/2ML VIAL IV PRN ×2 (20:00→23:06)
[2022-12-12] VITALS (29 sets, daily range): BP systolic 77–126; BP diastolic 47–63
[2022-12-12] MEDS: MIDAZOLAM INJ 2MG/2ML VIAL IV PRN ×2 (00:21→21:09)
[2022-12-12] MEDS: MIDAZOLAM 100MG/100ML-0.9%NACL 100 MG in IV 1 EA IV SCH (02:30)
[2022-12-12] MEDS: HEPARIN DRIP 25,000 UNITS in IV 1 EA IV SCH (02:36)
[2022-12-12] MEDS: IPRATROPIUM 0.5MG/ALBUTEROL 2.5MG INH SOL UD 3ML (DUONEB) NEB SCH ×6 (03:14→23:02)
[2022-12-12 05:01] LABS: BASO % 0.3 % (0.0-1.0); EOS # 0.6 10^3/uL (0.0-0.5); EOS % 8.1 % (0.0-3.0); HEMATOCRIT 28.7 % (36.0-47.0); HEMOGLOBIN 9.1 g/dl (12.0-15.5); LYMPH # 1.7 10^3/uL (1.5-5.0); LYMPH % 21.1 % (24.0-44.0); MEAN CORPUSCULAR HEMOGLOBIN 28.2 pg (27.0-33.0); MEAN CORPUSCULAR HGB CONC 31.7 g/dl (32.0-36.5); MEAN CORPUSCULAR VOLUME 88.9 fl (80.0-96.0); MONO # 0.7 10^3/uL (0.0-0.8); MONO % 9.5 % (2.0-8.0); NEUTROPHILS # 4.7 10^3/uL (1.5-8.5); PLATELET COUNT, AUTOMATED 314 10^3/uL (150-450); RED BLOOD COUNT 3.23 10^6/uL (4.00-5.40); WHITE BLOOD COUNT 7.8 10^3/uL (4.0-10.0)
[2022-12-12 05:32] LABS: PHOSPHORUS LEVEL 4.3 MG/DL (2.4-5.1)
[2022-12-12 05:55] LABS: ABG HCO3 23.3 MEQ/L (22.0-26.0); ABG PARTIAL PRESSURE O2 92.6 mmHg (75.0-100.0); ABG STANDARD HCO3 25.3 MEQ/L (22.0-26.0); ABG TOTAL CO2 24.1 MEQ/L (23.0-31.0); ABG pH (ARTERIAL) 7.522 UNITS (7.350-7.450)
[2022-12-12] MEDS: INSULIN LISPRO (NovoLOG) PER UNIT SC SCH ×4 (06:00→18:27)
[2022-12-12 06:31] LABS: BLOOD UREA NITROGEN 8 MG/DL (9-23); CALCIUM LEVEL 7.9 MG/DL (8.3-10.6); CARBON DIOXIDE LEVEL 24 MMOL/L (20-31); CHLORIDE LEVEL 103 MMOL/L (98-107); CREATININE FOR GFR 0.52 MG/DL (0.55-1.30); GLOMERULAR FILTRATION RATE > 60.0 (>39); GLUCOSE, FASTING 100 MG/DL (74-106); POTASSIUM SERUM 4.2 MMOL/L (3.5-5.1); SODIUM LEVEL 136 MMOL/L (136-145)
[2022-12-12] MEDS ORDERED: CLOPIDOGREL 75 MG TAB PO STA (08:24)
[2022-12-12] MEDS: PANTOPRAZOLE 40MG VIAL IV SCH (08:25)
[2022-12-12] MEDS: CHLORHEXIDINE GLUCONATE 0.12 % 15ML UDC (PERIDEX ORAL RINSE) MT SCH ×2 (08:25→21:06)
[2022-12-12] MEDS: ASPIRIN 81MG CHEW TABLET PO SCH (08:25)
[2022-12-12] MEDS: ATORVASTATIN 20 MG TAB NG SCH (08:25)
[2022-12-12] MEDS: cefTRIAXone SOD 2 GM in D5W MINI-BAG PLUS 50 ML IV SCH (08:25)
[2022-12-12] MEDS: MULTIVITAMINS/MINERALS THERAP 1 TAB PO SCH (08:25)
[2022-12-12] MEDS: FOLIC ACID 1MG TAB PO SCH (08:25)
[2022-12-12] MEDS: ENOXAPARIN 40MG/0.4ML SYRINGE (J1650 PER 10MG) SC SCH (08:48)
[2022-12-12] MEDS: METOPROLOL TART 12.5 MG PER 1/2 TAB PO SCH ×4 (08:58→23:33)
[2022-12-12] MEDS ORDERED: FUROSEMIDE 40MG/4ML VIAL IV ONE (09:00)
[2022-12-12 11:31] LABS: ABG BASE EXCESS 2.7 (-2.0-2.0); ABG O2 SATURATION 94.1 % (95.0-99.0); ABG PARTIAL PRESSURE CO2 35.1 mmHg (35.0-45.0); ABG PARTIAL PRESSURE O2 73.9 mmHg (75.0-100.0); ABG STANDARD HCO3 26.8 MEQ/L (22.0-26.0); ABG pH (ARTERIAL) 7.487 UNITS (7.350-7.450)
[2022-12-12] MEDS ORDERED: LIDOCAINE 1% MDV 20ML VIAL TOP ONE (14:05)
[2022-12-12] MEDS ORDERED: NS 500 ML IV ONE (17:30)
[2022-12-12 18:47] LABS: BLOOD UREA NITROGEN 9 MG/DL (9-23); CALCIUM LEVEL 8.2 MG/DL (8.3-10.6); CARBON DIOXIDE LEVEL 28 MMOL/L (20-31); CHLORIDE LEVEL 100 MMOL/L (98-107); GLUCOSE, FASTING 109 MG/DL (74-106); MAGNESIUM LEVEL 1.8 MG/DL (1.8-2.4); POTASSIUM SERUM 3.8 MMOL/L (3.5-5.1); SODIUM LEVEL 135 MMOL/L (136-145)
[2022-12-12 20:02] LABS: CREATININE FOR GFR 0.53 MG/DL (0.55-1.30); GLOMERULAR FILTRATION RATE > 60.0 (>39)
[2022-12-13] VITALS (21 sets, daily range): BP systolic 90–145; BP diastolic 51–64; O2SAT 94–100
[2022-12-13] MEDS: MIDAZOLAM INJ 2MG/2ML VIAL IV PRN ×3 (00:12→04:50)
[2022-12-13] MEDS: IPRATROPIUM 0.5MG/ALBUTEROL 2.5MG INH SOL UD 3ML (DUONEB) NEB SCH ×5 (03:11→19:22)
[2022-12-13 05:15] LABS: BASO % 0.1 % (0.0-1.0); EOS # 0.7 10^3/uL (0.0-0.5); EOS % 8.4 % (0.0-3.0); HEMATOCRIT 28.3 % (36.0-47.0); HEMOGLOBIN 9.2 g/dl (12.0-15.5); LYMPH # 1.3 10^3/uL (1.5-5.0); LYMPH % 15.7 % (24.0-44.0); MEAN CORPUSCULAR HEMOGLOBIN 28.8 pg (27.0-33.0); MEAN CORPUSCULAR HGB CONC 32.5 g/dl (32.0-36.5); MEAN CORPUSCULAR VOLUME 88.7 fl (80.0-96.0); MONO % 11.6 % (2.0-8.0); NEUTROPHILS # 5.2 10^3/uL (1.5-8.5); NEUTROPHILS % 63.2 % (36.0-66.0); PLATELET COUNT, AUTOMATED 331 10^3/uL (150-450); RED BLOOD COUNT 3.19 10^6/uL (4.00-5.40); WHITE BLOOD COUNT 8.2 10^3/uL (4.0-10.0)
[2022-12-13 05:41] LABS: BLOOD UREA NITROGEN 14 MG/DL (9-23); CALCIUM LEVEL 8.6 MG/DL (8.3-10.6); CARBON DIOXIDE LEVEL 27 MMOL/L (20-31); CHLORIDE LEVEL 101 MMOL/L (98-107); GLOMERULAR FILTRATION RATE > 60.0 (>39); GLUCOSE, FASTING 114 MG/DL (74-106); PHOSPHORUS LEVEL 3.5 MG/DL (2.4-5.1); POTASSIUM SERUM 3.8 MMOL/L (3.5-5.1); SODIUM LEVEL 135 MMOL/L (136-145)
[2022-12-13 05:53] LABS: ABG BASE EXCESS 2.5 (-2.0-2.0); ABG HCO3 25.3 MEQ/L (22.0-26.0); ABG O2 SATURATION 94.9 % (95.0-99.0); ABG PARTIAL PRESSURE CO2 32.2 mmHg (35.0-45.0); ABG PARTIAL PRESSURE O2 74.9 mmHg (75.0-100.0); ABG STANDARD HCO3 26.7 MEQ/L (22.0-26.0); ABG TOTAL CO2 26.3 MEQ/L (23.0-31.0); ABG pH (ARTERIAL) 7.513 UNITS (7.350-7.450)
[2022-12-13] MEDS: INSULIN LISPRO (NovoLOG) PER UNIT SC SCH ×3 (06:00→12:00)
[2022-12-13] MEDS: METOPROLOL TART 12.5 MG PER 1/2 TAB PO SCH ×3 (06:00→18:13)
[2022-12-13] MEDS: cefTRIAXone SOD 2 GM in D5W MINI-BAG PLUS 50 ML IV SCH (07:55)
[2022-12-13] MEDS: PANTOPRAZOLE 40MG VIAL IV SCH (07:55)
[2022-12-13] MEDS: CHLORHEXIDINE GLUCONATE 0.12 % 15ML UDC (PERIDEX ORAL RINSE) MT SCH (07:55)
[2022-12-13] MEDS: FOLIC ACID 1MG TAB PO SCH (07:55)
[2022-12-13] MEDS: ATORVASTATIN 20 MG TAB NG SCH (07:56)
[2022-12-13] MEDS: CLOPIDOGREL 75 MG TAB PO SCH (07:56)
[2022-12-13] MEDS: MULTIVITAMINS/MINERALS THERAP 1 TAB PO SCH (07:56)
[2022-12-13] MEDS: ASPIRIN 81MG CHEW TABLET PO SCH (07:57)
[2022-12-13] MEDS: ENOXAPARIN 40MG/0.4ML SYRINGE (J1650 PER 10MG) SC SCH (07:58)
[2022-12-13] MEDS: ACETAMINOPHEN TAB 650MG DOSE (2X325MG) PO PRN ×2 (15:15→22:07)
[2022-12-13] MEDS ORDERED: NEOSPORIN OINT 0.9 GM PKT TOP ONE (15:45)
[2022-12-14] VITALS (13 sets, daily range): BP systolic 100–147; BP diastolic 53–78; O2SAT 92–97
[2022-12-14] MEDS: METOPROLOL TART 12.5 MG PER 1/2 TAB PO SCH ×5 (00:14→23:55)
[2022-12-14] MEDS: IPRATROPIUM 0.5MG/ALBUTEROL 2.5MG INH SOL UD 3ML (DUONEB) NEB SCH ×6 (00:23→19:35)
[2022-12-14 04:38] LABS: BASO % 0.3 % (0.0-1.0); EOS # 0.9 10^3/uL (0.0-0.5); EOS % 9.8 % (0.0-3.0); HEMATOCRIT 30.5 % (36.0-47.0); HEMOGLOBIN 9.9 g/dl (12.0-15.5); LYMPH # 1.2 10^3/uL (1.5-5.0); LYMPH % 13.5 % (24.0-44.0); MEAN CORPUSCULAR HEMOGLOBIN 28.9 pg (27.0-33.0); MEAN CORPUSCULAR HGB CONC 32.5 g/dl (32.0-36.5); MEAN CORPUSCULAR VOLUME 89.2 fl (80.0-96.0); MONO # 1.1 10^3/uL (0.0-0.8); MONO % 12.4 % (2.0-8.0); NEUTROPHILS # 5.7 10^3/uL (1.5-8.5); NEUTROPHILS % 63.1 % (36.0-66.0); PLATELET COUNT, AUTOMATED 366 10^3/uL (150-450); RED BLOOD COUNT 3.42 10^6/uL (4.00-5.40); WHITE BLOOD COUNT 9.1 10^3/uL (4.0-10.0)
[2022-12-14 05:03] LABS: BLOOD UREA NITROGEN 12 MG/DL (9-23); CALCIUM LEVEL 8.6 MG/DL (8.3-10.6); CARBON DIOXIDE LEVEL 29 MMOL/L (20-31); CHLORIDE LEVEL 103 MMOL/L (98-107); GLOMERULAR FILTRATION RATE > 60.0 (>39); GLUCOSE, FASTING 99 MG/DL (74-106); PHOSPHORUS LEVEL 3.7 MG/DL (2.4-5.1); POTASSIUM SERUM 3.9 MMOL/L (3.5-5.1); SODIUM LEVEL 137 MMOL/L (136-145)
[2022-12-14 05:51] LABS: ABG BASE EXCESS -1.4 (-2.0-2.0); ABG HCO3 22.3 MEQ/L (22.0-26.0); ABG O2 SATURATION 97.9 % (95.0-99.0); ABG PARTIAL PRESSURE O2 110.8 mmHg (75.0-100.0); ABG STANDARD HCO3 23.3 MEQ/L (22.0-26.0); ABG TOTAL CO2 23.4 MEQ/L (23.0-31.0); ABG pH (ARTERIAL) 7.435 UNITS (7.350-7.450)
[2022-12-14] MEDS: ACETAMINOPHEN TAB 650MG DOSE (2X325MG) PO PRN ×4 (05:54→23:04)
[2022-12-14] MEDS: PANTOPRAZOLE 40MG VIAL IV SCH (08:55)
[2022-12-14] MEDS: ASPIRIN 81MG CHEW TABLET PO SCH (08:55)
[2022-12-14] MEDS: MULTIVITAMINS/MINERALS THERAP 1 TAB PO SCH (08:56)
[2022-12-14] MEDS: CLOPIDOGREL 75 MG TAB PO SCH (08:56)
[2022-12-14] MEDS: ATORVASTATIN 20 MG TAB NG SCH (08:56)
[2022-12-14] MEDS: ENOXAPARIN 40MG/0.4ML SYRINGE (J1650 PER 10MG) SC SCH (08:56)
[2022-12-14] MEDS: FOLIC ACID 1MG TAB PO SCH (08:56)
[2022-12-15] MEDS: IPRATROPIUM 0.5MG/ALBUTEROL 2.5MG INH SOL UD 3ML (DUONEB) NEB SCH ×6 (00:52→19:39)
[2022-12-15 06:04] VITALS: BP 141/72
[2022-12-15] MEDS: METOPROLOL TART 12.5 MG PER 1/2 TAB PO SCH ×2 (06:04→12:55)
[2022-12-15 06:12] LABS: BASO % 0.4 % (0.0-1.0); EOS # 0.8 10^3/uL (0.0-0.5); EOS % 10.4 % (0.0-3.0); HEMATOCRIT 29.9 % (36.0-47.0); HEMOGLOBIN 9.6 g/dl (12.0-15.5); LYMPH # 1.3 10^3/uL (1.5-5.0); LYMPH % 18.3 % (24.0-44.0); MEAN CORPUSCULAR HEMOGLOBIN 28.7 pg (27.0-33.0); MEAN CORPUSCULAR HGB CONC 32.1 g/dl (32.0-36.5); MEAN CORPUSCULAR VOLUME 89.3 fl (80.0-96.0); MONO # 0.8 10^3/uL (0.0-0.8); MONO % 11.7 % (2.0-8.0); NEUTROPHILS # 4.2 10^3/uL (1.5-8.5); NEUTROPHILS % 58.4 % (36.0-66.0); PLATELET COUNT, AUTOMATED 379 10^3/uL (150-450); RED BLOOD COUNT 3.35 10^6/uL (4.00-5.40); WHITE BLOOD COUNT 7.2 10^3/uL (4.0-10.0)
[2022-12-15 06:40] LABS: BLOOD UREA NITROGEN 13 MG/DL (9-23); CALCIUM LEVEL 8.5 MG/DL (8.3-10.6); CARBON DIOXIDE LEVEL 29 MMOL/L (20-31); CHLORIDE LEVEL 100 MMOL/L (98-107); CREATININE FOR GFR 0.42 MG/DL (0.55-1.30); GLOMERULAR FILTRATION RATE > 60.0 (>39); GLUCOSE, FASTING 92 MG/DL (74-106); POTASSIUM SERUM 3.8 MMOL/L (3.5-5.1); SODIUM LEVEL 135 MMOL/L (136-145)
[2022-12-15] MEDS: MULTIVITAMINS/MINERALS THERAP 1 TAB PO SCH (08:49)
[2022-12-15] MEDS: ATORVASTATIN 20 MG TAB NG SCH (08:49)
[2022-12-15] MEDS: ACETAMINOPHEN TAB 650MG DOSE (2X325MG) PO PRN ×2 (08:49→12:54)
[2022-12-15] MEDS: ASPIRIN 81MG CHEW TABLET PO SCH (08:49)
[2022-12-15] MEDS: CLOPIDOGREL 75 MG TAB PO SCH (08:49)
[2022-12-15] MEDS: FOLIC ACID 1MG TAB PO SCH (08:49)
[2022-12-15] MEDS: PANTOPRAZOLE 40MG TAB (PROTONIX) PO SCH (08:49)
[2022-12-15] MEDS: ENOXAPARIN 40MG/0.4ML SYRINGE (J1650 PER 10MG) SC SCH (08:50)
[2022-12-15] MEDS ORDERED: PROHANCE 279.3MG/ML 5ML VIAL As Ordered ONE (10:18)
[2022-12-15 12:46] VITALS: BP 132/72
[2022-12-15 14:30] VITALS: BP 102/62
[2022-12-15 19:58] VITALS: BP 161/77
[2022-12-15] MEDS ORDERED: QUEtiapine FUMARATE 12.5 MG HALF-TAB PO ONE (20:25)
[2022-12-15] MEDS ORDERED: OLANZapine INTRAMUSCULAR 10MG VIAL IM PRN (20:25)
[2022-12-15] MEDS: TEMAZEPAM 7.5 MG CAP PO PRN (20:38)
[2022-12-15] MEDS: METOPROLOL TART 25 MG TABLET PO SCH (20:42)
[2022-12-15 20:47] LABS: VENOUS BASE EXCESS 1.3 (-2.0-2.0); VENOUS HCO3 25.5 MEQ/L (23.0-27.0); VENOUS O2 SATURATION 95.8 % (60.0-80.0); VENOUS PARTIAL PRESSURE CO2 38.9 mmHg (38.0-50.0); VENOUS PARTIAL PRESSURE O2 83.4 mmHg (30.0-50.0); VENOUS PH 7.434 UNITS (7.330-7.430); VENOUS STANDARD HCO3 25.6 MEQ/L; VENOUS TOTAL CO2 26.7 MEQ/L (24.0-28.0)
[2022-12-16] MEDS: IPRATROPIUM 0.5MG/ALBUTEROL 2.5MG INH SOL UD 3ML (DUONEB) NEB SCH ×4 (00:54→20:20)
[2022-12-16] MEDS: ENOXAPARIN 40MG/0.4ML SYRINGE (J1650 PER 10MG) SC SCH (07:59)
[2022-12-16] MEDS: MULTIVITAMINS/MINERALS THERAP 1 TAB PO SCH (08:00)
[2022-12-16] MEDS: ASPIRIN 81MG CHEW TABLET PO SCH (08:00)
[2022-12-16] MEDS: PANTOPRAZOLE 40MG TAB (PROTONIX) PO SCH (08:01)
[2022-12-16] MEDS: CLOPIDOGREL 75 MG TAB PO SCH (08:01)
[2022-12-16] MEDS: FOLIC ACID 1MG TAB PO SCH (08:01)
[2022-12-16] MEDS: ATORVASTATIN 20 MG TAB NG SCH (08:01)
[2022-12-16] MEDS: ACETAMINOPHEN TAB 650MG DOSE (2X325MG) PO PRN ×3 (08:02→22:55)
[2022-12-16] MEDS: METOPROLOL TART 25 MG TABLET PO SCH (08:04)
[2022-12-16 14:00] VITALS: BP 102/66
[2022-12-16] MEDS: QUEtiapine FUMARATE 25 MG TAB PO SCH (18:00)
[2022-12-16] MEDS ORDERED: QUEtiapine FUMARATE 25 MG TAB PO PRN (19:25)
[2022-12-16 20:13] VITALS: BP 156/69
[2022-12-16] MEDS: METOPROLOL TART 12.5 MG PER 1/2 TAB PO SCH (20:14)
[2022-12-16] MEDS: TEMAZEPAM 7.5 MG CAP PO PRN (22:55)
[2022-12-17] MEDS: IPRATROPIUM 0.5MG/ALBUTEROL 2.5MG INH SOL UD 3ML (DUONEB) NEB SCH ×4 (01:52→20:11)
[2022-12-17 05:35] VITALS: BP 169/65
[2022-12-17] MEDS: METOPROLOL TART 12.5 MG PER 1/2 TAB PO SCH (05:47)
[2022-12-17] MEDS: ACETAMINOPHEN TAB 650MG DOSE (2X325MG) PO PRN ×4 (05:48→23:47)
[2022-12-17] MEDS: PANTOPRAZOLE 40MG TAB (PROTONIX) PO SCH (07:34)
[2022-12-17] MEDS: MULTIVITAMINS/MINERALS THERAP 1 TAB PO SCH (07:35)
[2022-12-17] MEDS: CLOPIDOGREL 75 MG TAB PO SCH (07:35)
[2022-12-17] MEDS: ATORVASTATIN 20 MG TAB NG SCH (07:35)
[2022-12-17] MEDS: ASPIRIN 81MG CHEW TABLET PO SCH (07:35)
[2022-12-17] MEDS: FOLIC ACID 1MG TAB PO SCH (07:35)
[2022-12-17] MEDS: ENOXAPARIN 40MG/0.4ML SYRINGE (J1650 PER 10MG) SC SCH (07:36)
[2022-12-17] MEDS: METOPROLOL TART 25 MG TABLET PO SCH ×2 (07:43→20:56)
[2022-12-17 08:23] LABS: BASO # 0.1 10^3/uL (0.0-0.2); BASO % 0.6 % (0.0-1.0); EOS # 0.9 10^3/uL (0.0-0.5); EOS % 9.6 % (0.0-3.0); HEMATOCRIT 29.6 % (36.0-47.0); HEMOGLOBIN 9.8 g/dl (12.0-15.5); LYMPH # 1.9 10^3/uL (1.5-5.0); LYMPH % 20.6 % (24.0-44.0); MEAN CORPUSCULAR HEMOGLOBIN 29.4 pg (27.0-33.0); MEAN CORPUSCULAR HGB CONC 33.1 g/dl (32.0-36.5); MEAN CORPUSCULAR VOLUME 88.9 fl (80.0-96.0); MONO % 11.4 % (2.0-8.0); NEUTROPHILS # 5.1 10^3/uL (1.5-8.5); NEUTROPHILS % 56.7 % (36.0-66.0); PLATELET COUNT, AUTOMATED 429 10^3/uL (150-450); RED BLOOD COUNT 3.33 10^6/uL (4.00-5.40); WHITE BLOOD COUNT 9.1 10^3/uL (4.0-10.0)
[2022-12-17 08:50] LABS: BLOOD UREA NITROGEN 10 MG/DL (9-23); CALCIUM LEVEL 9.1 MG/DL (8.3-10.6); CARBON DIOXIDE LEVEL 28 MMOL/L (20-31); CHLORIDE LEVEL 102 MMOL/L (98-107); CREATININE FOR GFR 0.46 MG/DL (0.55-1.30); GLOMERULAR FILTRATION RATE > 60.0 (>39); GLUCOSE, FASTING 95 MG/DL (74-106); POTASSIUM SERUM 3.6 MMOL/L (3.5-5.1); SODIUM LEVEL 137 MMOL/L (136-145)
[2022-12-17 14:00] VITALS: BP 93/51
[2022-12-17 16:00] VITALS: BP 152/68
[2022-12-17] MEDS: QUEtiapine FUMARATE 25 MG TAB PO SCH (17:17)
[2022-12-17 20:57] VITALS: BP 134/58
[2022-12-18] MEDS: TEMAZEPAM 7.5 MG CAP PO PRN (00:46)
[2022-12-18] MEDS: IPRATROPIUM 0.5MG/ALBUTEROL 2.5MG INH SOL UD 3ML (DUONEB) NEB SCH ×4 (01:22→20:14)
[2022-12-18] MEDS: ACETAMINOPHEN TAB 650MG DOSE (2X325MG) PO PRN ×3 (05:31→22:02)
[2022-12-18 06:25] VITALS: BP 166/58
[2022-12-18] MEDS: ENOXAPARIN 40MG/0.4ML SYRINGE (J1650 PER 10MG) SC SCH (10:21)
[2022-12-18] MEDS: ATORVASTATIN 20 MG TAB NG SCH (10:21)
[2022-12-18] MEDS: FOLIC ACID 1MG TAB PO SCH (10:21)
[2022-12-18] MEDS: CLOPIDOGREL 75 MG TAB PO SCH (10:22)
[2022-12-18] MEDS: ASPIRIN 81MG CHEW TABLET PO SCH (10:22)
[2022-12-18] MEDS: MULTIVITAMINS/MINERALS THERAP 1 TAB PO SCH (10:22)
[2022-12-18] MEDS: PANTOPRAZOLE 40MG TAB (PROTONIX) PO SCH (10:23)
[2022-12-18] MEDS: METOPROLOL TART 25 MG TABLET PO SCH ×2 (10:23→20:58)
[2022-12-18] MEDS ORDERED: MOM 30ML SUSPENSION UDC PO ONE (10:35)
[2022-12-18] MEDS: SENOKOT S TAB PO SCH ×2 (11:07→20:58)
[2022-12-18] MEDS: QUEtiapine FUMARATE 25 MG TAB PO SCH (17:10)
[2022-12-18] MEDS ORDERED: NICOTINE 14 MG/24 HR TRANSDERMAL TD PRN (18:30)
[2022-12-19] MEDS: IPRATROPIUM 0.5MG/ALBUTEROL 2.5MG INH SOL UD 3ML (DUONEB) NEB SCH ×4 (01:40→19:26)
[2022-12-19 05:45] VITALS: BP 146/80
[2022-12-19] MEDS: ACETAMINOPHEN TAB 650MG DOSE (2X325MG) PO PRN ×4 (05:46→19:42)
[2022-12-19 09:00] VITALS: O2SAT 95
[2022-12-19] MEDS: MOM 30ML SUSPENSION UDC PO SCH (09:54)
[2022-12-19] MEDS: PANTOPRAZOLE 40MG TAB (PROTONIX) PO SCH (09:54)
[2022-12-19] MEDS: CLOPIDOGREL 75 MG TAB PO SCH (09:54)
[2022-12-19] MEDS: ASPIRIN 81MG CHEW TABLET PO SCH (09:54)
[2022-12-19] MEDS: ENOXAPARIN 40MG/0.4ML SYRINGE (J1650 PER 10MG) SC SCH (09:55)
[2022-12-19] MEDS: MULTIVITAMINS/MINERALS THERAP 1 TAB PO SCH (09:55)
[2022-12-19] MEDS: FOLIC ACID 1MG TAB PO SCH (09:55)
[2022-12-19] MEDS: SENOKOT S TAB PO SCH ×2 (09:55→19:43)
[2022-12-19] MEDS: ATORVASTATIN 20 MG TAB NG SCH (09:56)
[2022-12-19] MEDS: METOPROLOL TART 25 MG TABLET PO SCH ×2 (10:01→19:42)
[2022-12-19] MEDS: QUEtiapine FUMARATE 25 MG TAB PO SCH (19:41)
[2022-12-19 20:33] VITALS: BP 120/53
[2022-12-19] MEDS ORDERED: oxyCODONE 5MG TAB PO ONE (20:50)
[2022-12-20] MEDS: IPRATROPIUM 0.5MG/ALBUTEROL 2.5MG INH SOL UD 3ML (DUONEB) NEB SCH (01:24)
[2022-12-20 05:38] VITALS: BP 176/84
[2022-12-20] MEDS ORDERED: methylPREDNISolone 125MG 2ML VIAL IV ONE (07:15)
[2022-12-20] MEDS ORDERED: METOPROLOL TART 50 MG TAB PO STA (07:18)
[2022-12-20] MEDS ORDERED: LEVALBUTEROL 1.25MG 0.5ML CONCENTRATE NEB INH PRN (07:20)
[2022-12-20] MEDS ORDERED: IPRATROPIUM 0.02% SOLN 0.5MG 2.5ML NEB INH PRN (07:20)
[2022-12-20] MEDS ORDERED: FUROSEMIDE 20MG/2ML VIAL IV STA (07:23)
[2022-12-20] MEDS: IPRATROPIUM 0.02% SOLN 0.5MG 2.5ML NEB INH SCH ×4 (08:25→20:43)
[2022-12-20] MEDS: LEVALBUTEROL 1.25MG 0.5ML CONCENTRATE NEB INH SCH ×4 (08:26→20:43)
[2022-12-20] MEDS: LEVALBUTEROL 1.25MG 0.5ML CONCENTRATE NEB NEB SCH ×3 (08:41→09:16)
[2022-12-20] MEDS: SENOKOT S TAB PO SCH ×2 (08:44→20:13)
[2022-12-20] MEDS: MULTIVITAMINS/MINERALS THERAP 1 TAB PO SCH (08:44)
[2022-12-20] MEDS: PANTOPRAZOLE 40MG TAB (PROTONIX) PO SCH (08:44)
[2022-12-20] MEDS: FOLIC ACID 1MG TAB PO SCH (08:44)
[2022-12-20] MEDS: CLOPIDOGREL 75 MG TAB PO SCH (08:44)
[2022-12-20] MEDS: ASPIRIN 81MG CHEW TABLET PO SCH (08:45)
[2022-12-20] MEDS: ATORVASTATIN 20 MG TAB NG SCH (08:45)
[2022-12-20] MEDS: MOM 30ML SUSPENSION UDC PO SCH (08:47)
[2022-12-20 14:00] VITALS: BP 131/61
[2022-12-20] MEDS: DOXYCYCLINE HYCLATE 100MG TABLET PO SCH ×2 (14:34→20:13)
[2022-12-20] MEDS: methylPREDNISolone 40MG 1ML VIAL IV SCH ×2 (14:34→20:13)
[2022-12-20 15:00] LABS: BASO % 0.4 % (0.0-1.0); EOS % 0.2 % (0.0-3.0); HEMATOCRIT 30.1 % (36.0-47.0); HEMOGLOBIN 9.8 g/dl (12.0-15.5); LYMPH # 0.5 10^3/uL (1.5-5.0); LYMPH % 6.3 % (24.0-44.0); MEAN CORPUSCULAR HGB CONC 32.6 g/dl (32.0-36.5); MEAN CORPUSCULAR VOLUME 89.1 fl (80.0-96.0); MONO # 0.1 10^3/uL (0.0-0.8); MONO % 0.9 % (2.0-8.0); NEUTROPHILS # 7.3 10^3/uL (1.5-8.5); PLATELET COUNT, AUTOMATED 475 10^3/uL (150-450); RED BLOOD COUNT 3.38 10^6/uL (4.00-5.40); WHITE BLOOD COUNT 8.1 10^3/uL (4.0-10.0)
[2022-12-20 15:17] LABS: ERYTHROCYTE SEDIMENTATION RATE 24 mm/hr (0-30)
[2022-12-20 15:24] LABS: CK-MB VALUE MASS < 1.0 NG/ML (<3.6)
[2022-12-20 15:26] LABS: CPK CREATINE PHOSPHOKINASE 39 U/L (34-145); MB/CK RELATIVE INDEX 2.56 (< OR =4)
[2022-12-20 15:27] LABS: ALBUMIN 2.8 G/DL (3.2-5.2); ALKALINE PHOSPHATASE 122 U/L (46-116); ALT/SGPT 99 U/L (7.0-40); AST/SGOT 69 U/L (<34); BILIRUBIN,TOTAL 0.4 MG/DL (0.3-1.2); BLOOD UREA NITROGEN 11 MG/DL (9-23); CARBON DIOXIDE LEVEL 33 MMOL/L (20-31); CHLORIDE LEVEL 98 MMOL/L (98-107); CREATININE FOR GFR 0.43 MG/DL (0.55-1.30); GLOMERULAR FILTRATION RATE > 60.0 (>39); GLUCOSE, FASTING 181 MG/DL (74-106); MAGNESIUM LEVEL 1.6 MG/DL (1.8-2.4); POTASSIUM SERUM 3.7 MMOL/L (3.5-5.1); SODIUM LEVEL 136 MMOL/L (136-145); TOTAL PROTEIN 5.6 G/DL (5.7-8.2)
[2022-12-20] MEDS: QUEtiapine FUMARATE 25 MG TAB PO SCH (17:18)
[2022-12-20] MEDS: TEMAZEPAM 7.5 MG CAP PO PRN (20:14)
[2022-12-20 20:15] VITALS: BP 136/59
[2022-12-21] MEDS: methylPREDNISolone 40MG 1ML VIAL IV SCH ×2 (01:38→08:11)
[2022-12-21] MEDS: IPRATROPIUM 0.02% SOLN 0.5MG 2.5ML NEB INH SCH ×7 (04:00→23:38)
[2022-12-21] MEDS: LEVALBUTEROL 1.25MG 0.5ML CONCENTRATE NEB INH SCH ×7 (04:00→23:38)
[2022-12-21 05:36] VITALS: BP 176/73
[2022-12-21] MEDS: ATORVASTATIN 20 MG TAB NG SCH (08:12)
[2022-12-21] MEDS: PANTOPRAZOLE 40MG TAB (PROTONIX) PO SCH (08:13)
[2022-12-21] MEDS: MULTIVITAMINS/MINERALS THERAP 1 TAB PO SCH (08:13)
[2022-12-21] MEDS: ASPIRIN 81MG CHEW TABLET PO SCH (08:14)
[2022-12-21] MEDS: FOLIC ACID 1MG TAB PO SCH (08:14)
[2022-12-21] MEDS: DOXYCYCLINE HYCLATE 100MG TABLET PO SCH ×2 (08:14→20:42)
[2022-12-21] MEDS: CLOPIDOGREL 75 MG TAB PO SCH (08:15)
[2022-12-21] MEDS: ACETAMINOPHEN TAB 650MG DOSE (2X325MG) PO PRN ×3 (08:23→20:43)
[2022-12-21] MEDS: MOM 30ML SUSPENSION UDC PO SCH (08:58)
[2022-12-21] MEDS: SENOKOT S TAB PO SCH ×2 (08:58→20:42)
[2022-12-21] MEDS ORDERED: predniSONE 20 MG TAB PO SCH (09:00)
[2022-12-21] MEDS: predniSONE 10MG TAB PO SCH ×2 (12:25→20:43)
[2022-12-21] MEDS: QUEtiapine FUMARATE 25 MG TAB PO SCH (17:26)
[2022-12-22] MEDS: LEVALBUTEROL 1.25MG 0.5ML CONCENTRATE NEB INH SCH ×3 (03:13→11:29)
[2022-12-22] MEDS: IPRATROPIUM 0.02% SOLN 0.5MG 2.5ML NEB INH SCH ×3 (03:13→11:28)
[2022-12-22 06:00] VITALS: BP 153/65
[2022-12-22] MEDS: ACETAMINOPHEN TAB 650MG DOSE (2X325MG) PO PRN ×2 (07:11→13:31)
[2022-12-22] MEDS: MOM 30ML SUSPENSION UDC PO SCH (09:00)
[2022-12-22] MEDS: SENOKOT S TAB PO SCH (09:00)
[2022-12-22] MEDS: predniSONE 10MG TAB PO SCH (09:20)
[2022-12-22] MEDS: ASPIRIN 81MG CHEW TABLET PO SCH (09:21)
[2022-12-22] MEDS: FOLIC ACID 1MG TAB PO SCH (09:22)
[2022-12-22] MEDS: ATORVASTATIN 20 MG TAB NG SCH (09:22)
[2022-12-22] MEDS: PANTOPRAZOLE 40MG TAB (PROTONIX) PO SCH (09:23)
[2022-12-22] MEDS: MULTIVITAMINS/MINERALS THERAP 1 TAB PO SCH (09:23)
[2022-12-22] MEDS: CLOPIDOGREL 75 MG TAB PO SCH (09:23)
[2022-12-22 09:24] VITALS: BP 153/65
[2022-12-22] MEDS: DOXYCYCLINE HYCLATE 100MG TABLET PO SCH (09:24)
[2022-12-22] MEDS ORDERED: DOXY100T PO (11:41)
[2022-12-22] MEDS ORDERED: ALBU2.5V10 INH (11:41)
[2022-12-22] MEDS ORDERED: NICO14PA TD (11:41)
[2022-12-22] MEDS ORDERED: AMOX875T2 PO (11:41)
[2022-12-22] MEDS ORDERED: CLOP75TA2 PO (11:41)
[2022-12-22] MEDS ORDERED: PRED10TA2 PO (11:41)
[2022-12-22] MEDS ORDERED: ATOR1TAB21 NG (11:41)
[2022-12-22] MEDS ORDERED: ASPI81CH8 PO (11:41)
[2022-12-22] MEDS ORDERED: PRED20TA PO (11:41)
[2022-12-22] MEDS ORDERED: ALBU8.5H INH (11:41)
== END 2022-12-22 14:45 | disposition home health service (06) | DRG 870 ==
LOC: M ED 17:12 → M ED INP 12-08 00:30 → ENRESERV 12-08 12:52 → M PCU 12-08 14:32 → M ICU 12-08 16:32 → M MS5PR 12-14 18:12
PROVIDERS: ADMIT Family Medicine; ATTEND General Practice
PROC: 5A1955Z Respiratory Ventilation, Greater than 96 Consecutive Hours (ICD-10-PCS; principal; 2022-12-08)
PROC: B246ZZZ Ultrasonography of Right and Left Heart (ICD-10-PCS; 2022-12-08)
PROC: 0BH17EZ Insertion of Endotracheal Airway into Trachea, Via Natural or Artificial Opening (ICD-10-PCS; 2022-12-08)
PROC: 02HV33Z Insertion of Infusion Device into Superior Vena Cava, Percutaneous Approach (ICD-10-PCS; 2022-12-09)
DX: A41.51 Sepsis due to Escherichia coli [E. coli] (principal); J96.01 Acute respiratory failure with hypoxia; J96.02 Acute respiratory failure with hypercapnia; J81.0 Acute pulmonary edema; G93.41 Metabolic encephalopathy; I21.4 Non-ST elevation (NSTEMI) myocardial infarction; R65.21 Severe sepsis with septic shock; C34.11 Malignant neoplasm of upper lobe, right bronchus or lung; J44.1 Chronic obstructive pulmonary disease with (acute) exacerbation; N39.0 Urinary tract infection, site not specified; I10 Essential (primary) hypertension; E78.5 Hyperlipidemia, unspecified; R73.03 Prediabetes; E03.9 Hypothyroidism, unspecified; E87.6 Hypokalemia; D64.9 Anemia, unspecified; R73.9 Hyperglycemia, unspecified; H40.9 Unspecified glaucoma; H26.9 Unspecified cataract; Z79.899 Other long term (current) drug therapy; Z87.891 Personal history of nicotine dependence

== ENCOUNTER 2023-01-04 09:42 | Outpatient (RCR) | payer MEDICARE ==
[~2023-01-04 09:42] MED LIST changes: +ALBU2.5V10 INH; +AMOX875T2 PO; +ASPI81CH8 PO; +ATOR1TAB21 NG; +CLOP75TA2 PO; +NICO14PA TD; +OXYC-517 PO
[2023-01-09] MEDS ORDERED: OXYC-517 PO (11:53)
[2023-01-13] MEDS ORDERED: ASPI81TA26 PO (13:52)
[2023-01-13] MEDS ORDERED: CLOP75TA2 PO (13:52)
[2023-01-13] MEDS ORDERED: ATOR80TA59 PO (13:52)
[2023-01-14] MEDS ORDERED: PANT40TA29 PO (10:17)
[2023-01-14] MEDS ORDERED: HYDR-3715 PO (10:17)
[2023-01-14] MEDS ORDERED: IBUP-1114 PO (10:17)
[2023-01-14] MEDS ORDERED: ACET-683 PO (10:17)
[2023-01-14] MEDS ORDERED: ALBU8.5H INH (10:19)
[2023-01-14] MEDS ORDERED: AMLO1TAB25 PO (10:20)
== END 2023-01-19 ==
LOC: M ONCR 09:42
PROVIDERS: ATTEND General Practice
DX: C34.11 Malignant neoplasm of upper lobe, right bronchus or lung (principal)

== ENCOUNTER 2023-01-13 09:58 | Inpatient (IN) | payer MEDICARE ==
[~2023-01-13] VITALS: Ht 152.4 cm; Wt 50.0 kg
[2023-01-13] MEDS ORDERED: NS 500 ML IV ONE (10:35)
[2023-01-13] MEDS ORDERED: ISOVUE-370 76% 100ML VIAL As Ordered ONE (10:40)
[2023-01-13 10:44] LABS: VENOUS PH 7.404 UNITS (7.330-7.430)
[2023-01-13 10:45] LABS: VENOUS HCO3 23.5 MEQ/L (23.0-27.0); VENOUS O2 SATURATION 86.9 % (60.0-80.0); VENOUS PARTIAL PRESSURE CO2 38.5 mmHg (38.0-50.0); VENOUS PARTIAL PRESSURE O2 54.8 mmHg (30.0-50.0); VENOUS STANDARD HCO3 23.5 MEQ/L; VENOUS TOTAL CO2 24.7 MEQ/L (24.0-28.0)
[2023-01-13 10:52] LABS: BASO % 0.5 % (0.0-1.0); EOS # 0.1 10^3/uL (0.0-0.5); EOS % 2.4 % (0.0-3.0); HEMATOCRIT 32.8 % (36.0-47.0); HEMOGLOBIN 10.8 g/dl (12.0-15.5); LYMPH # 0.4 10^3/uL (1.5-5.0); LYMPH % 10.5 % (24.0-44.0); MEAN CORPUSCULAR HEMOGLOBIN 29.8 pg (27.0-33.0); MEAN CORPUSCULAR HGB CONC 32.9 g/dl (32.0-36.5); MEAN CORPUSCULAR VOLUME 90.4 fl (80.0-96.0); MONO # 0.4 10^3/uL (0.0-0.8); MONO % 9.8 % (2.0-8.0); NEUTROPHILS # 3.1 10^3/uL (1.5-8.5); NEUTROPHILS % 76.6 % (36.0-66.0); PLATELET COUNT, AUTOMATED 242 10^3/uL (150-450); RED BLOOD COUNT 3.63 10^6/uL (4.00-5.40); WHITE BLOOD COUNT 4.1 10^3/uL (4.0-10.0)
[2023-01-13 11:03] LABS: INR 1.29; PROTHROMBIN TIME 16.3 SECONDS (12.5-14.5)
[2023-01-13 11:04] LABS: PARTIAL THROMBOPLASTIN TIME 20.9 SECONDS (24.8-34.2)
[2023-01-13 11:15] LABS: LIPASE 16 U/L (12-53)
[2023-01-13 11:16] LABS: CPK CREATINE PHOSPHOKINASE 39 U/L (34-145)
[2023-01-13 11:23] LABS: RSV AMPLIFICATION NEGATIVE (NEGATIVE)
[2023-01-13 11:38] LABS: ALBUMIN 2.7 G/DL (3.2-5.2); ALKALINE PHOSPHATASE 92 U/L (46-116); ALT/SGPT 126 U/L (7.0-40); AST/SGOT 94 U/L (<34); BILIRUBIN,DIRECT 0.2 MG/DL (<0.4); BILIRUBIN,TOTAL 0.4 MG/DL (0.3-1.2); BLOOD UREA NITROGEN 10 MG/DL (9-23); CARBON DIOXIDE LEVEL 23 MMOL/L (20-31); CHLORIDE LEVEL 104 MMOL/L (98-107); CK-MB VALUE MASS < 1.0 NG/ML (<3.6); FREE T4 1.32 NG/DL (0.89-1.76); GLOMERULAR FILTRATION RATE > 60.0 (>39); GLUCOSE, FASTING 84 MG/DL (74-106); MB/CK RELATIVE INDEX 2.56 (< OR =4); POTASSIUM SERUM 3.4 MMOL/L (3.5-5.1); SODIUM LEVEL 136 MMOL/L (136-145); THYROID STIMULATING HORMONE 0.207 uIU/ML (0.55-4.78); TOTAL PROTEIN 5.4 G/DL (5.7-8.2)
[2023-01-13] MEDS ORDERED: fentaNYL 100 MCG/2 ML INJECTION IV ONE (12:00)
[2023-01-13] MEDS ORDERED: ONDANSETRON 4MG 2ML VIAL IV ONE (12:00)
[2023-01-13 12:12] LABS: CK-MB VALUE MASS < 1.0 NG/ML (<3.6)
[2023-01-13 12:14] LABS: CPK CREATINE PHOSPHOKINASE 37 U/L (34-145)
[2023-01-13] MEDS ORDERED: ATOR80TA59 PO (13:52)
[2023-01-13] MEDS ORDERED: ASPI81TA26 PO (13:52)
[2023-01-13] MEDS ORDERED: CLOP75TA2 PO (13:52)
[2023-01-13] MEDS ORDERED: HOME MED LIST COMPLETE! XX SCH (13:55)
[2023-01-13] MEDS ORDERED: METOPROLOL SUCC (TopROL XL) 50MG **XL** TAB PO ONE (14:50)
[2023-01-13] MEDS ORDERED: ONDANSETRON 4MG 2ML VIAL IV PRN (14:55)
[2023-01-13] MEDS ORDERED: NORCO, ANEXSIA 5/325MG TABLET (HYDROcodone/ACETAMINOPHEN) PO PRN ×2 (14:55)
[2023-01-13] MEDS ORDERED: POTASSIUM CHLORIDE 10MEQ SR TABLET PO ONE (14:55)
[2023-01-13 15:53] LABS: MB/CK RELATIVE INDEX 2.27 (< OR =4)
[2023-01-13] MEDS: CLOPIDOGREL 75 MG TAB PO SCH (15:56)
[2023-01-13] MEDS: ASPIRIN 81MG ENTERIC TABLET PO SCH (15:56)
[2023-01-13] MEDS: KETOROLAC TROMETHAMINE 10 MG TAB PO SCH ×2 (15:59→20:54)
[2023-01-13] MEDS: ACETAMINOPHEN 500 MG TAB PO SCH ×2 (16:00→20:53)
[2023-01-13] MEDS: COMBIVENT RESPIMAT 100-20MCG INHALER 4GM INH SCH ×2 (16:02→21:18)
[2023-01-13 16:03] VITALS: O2SAT 97
[2023-01-13 18:45] VITALS: BP 116/63
[2023-01-13] MEDS ORDERED: PANTOPRAZOLE 40MG TAB (PROTONIX) PO SCH (21:00)
[2023-01-13 22:05] VITALS: BP 142/52
[2023-01-14 06:10] VITALS: BP 97/54
[2023-01-14 06:58] LABS: BASO % 0.4 % (0.0-1.0); EOS # 0.3 10^3/uL (0.0-0.5); EOS % 6.5 % (0.0-3.0); HEMATOCRIT 29.1 % (36.0-47.0); HEMOGLOBIN 9.3 g/dl (12.0-15.5); LYMPH # 0.5 10^3/uL (1.5-5.0); LYMPH % 10.2 % (24.0-44.0); MEAN CORPUSCULAR VOLUME 90.7 fl (80.0-96.0); MONO # 0.7 10^3/uL (0.0-0.8); NEUTROPHILS # 3.2 10^3/uL (1.5-8.5); NEUTROPHILS % 67.5 % (36.0-66.0); PLATELET COUNT, AUTOMATED 235 10^3/uL (150-450); RED BLOOD COUNT 3.21 10^6/uL (4.00-5.40); WHITE BLOOD COUNT 4.8 10^3/uL (4.0-10.0)
[2023-01-14 07:29] LABS: BLOOD UREA NITROGEN 13 MG/DL (9-23); CALCIUM LEVEL 7.7 MG/DL (8.3-10.6); CARBON DIOXIDE LEVEL 26 MMOL/L (20-31); CHLORIDE LEVEL 105 MMOL/L (98-107); CREATININE FOR GFR 0.44 MG/DL (0.55-1.30); GLOMERULAR FILTRATION RATE > 60.0 (>39); GLUCOSE, FASTING 81 MG/DL (74-106); POTASSIUM SERUM 3.3 MMOL/L (3.5-5.1); SODIUM LEVEL 138 MMOL/L (136-145)
[2023-01-14] MEDS: COMBIVENT RESPIMAT 100-20MCG INHALER 4GM INH SCH ×2 (07:33→11:34)
[2023-01-14] MEDS ORDERED: POTASSIUM CHLORIDE 10MEQ SR TABLET PO ONE (07:55)
[2023-01-14 08:07] VITALS: BP 97/54
[2023-01-14] MEDS: ASPIRIN 81MG ENTERIC TABLET PO SCH (08:36)
[2023-01-14] MEDS: CLOPIDOGREL 75 MG TAB PO SCH (08:37)
[2023-01-14] MEDS: ACETAMINOPHEN 500 MG TAB PO SCH (08:37)
[2023-01-14] MEDS: KETOROLAC TROMETHAMINE 10 MG TAB PO SCH (08:37)
[2023-01-14] MEDS ORDERED: amLODIPine 5 MG TAB PO SCH (09:00)
[2023-01-14] MEDS ORDERED: ENOXAPARIN 40MG/0.4ML SYRINGE (J1650 PER 10MG) SC SCH (09:00)
[2023-01-14] MEDS ORDERED: METOPROLOL SUCC (TopROL XL) 50MG **XL** TAB PO SCH (09:00)
[2023-01-14] MEDS ORDERED: ATORVASTATIN 20 MG TAB PO SCH (09:00)
[2023-01-14] MEDS ORDERED: PANT40TA29 PO (10:17)
[2023-01-14] MEDS ORDERED: HYDR-3715 PO (10:17)
[2023-01-14] MEDS ORDERED: ACET-683 PO (10:17)
[2023-01-14] MEDS ORDERED: IBUP-1114 PO (10:17)
[2023-01-14] MEDS ORDERED: ALBU8.5H INH (10:19)
[2023-01-14] MEDS ORDERED: AMLO1TAB25 PO (10:20)
== END 2023-01-14 12:58 | disposition home or self-care (01) | DRG 394 ==
LOC: M ED 09:58 → EDBD 09:58 → M ED INP 14:18 → ENRESERV 16:20 → M MS5PR 18:50
PROVIDERS: ADMIT Internal Medicine Nephrology; ATTEND Internal Medicine Nephrology
DX: K52.1 Toxic gastroenteritis and colitis (principal); C34.11 Malignant neoplasm of upper lobe, right bronchus or lung; C79.51 Secondary malignant neoplasm of bone; R53.1 Weakness; R19.7 Diarrhea, unspecified; R07.9 Chest pain, unspecified; J44.9 Chronic obstructive pulmonary disease, unspecified; I25.10 Atherosclerotic heart disease of native coronary artery without angina pectoris; I10 Essential (primary) hypertension; R53.81 Other malaise; R73.03 Prediabetes; E03.9 Hypothyroidism, unspecified; E86.0 Dehydration; Z66 Do not resuscitate; H40.9 Unspecified glaucoma; D64.9 Anemia, unspecified; F17.200 Nicotine dependence, unspecified, uncomplicated; H26.9 Unspecified cataract; E87.6 Hypokalemia; G89.3 Neoplasm related pain (acute) (chronic); I25.2 Old myocardial infarction; Z79.82 Long term (current) use of aspirin; Z79.899 Other long term (current) drug therapy; Z92.3 Personal history of irradiation; Z79.02 Long term (current) use of antithrombotics/antiplatelets; T50.995A Adverse effect of other drugs, medicaments and biological substances, initial encounter

== ENCOUNTER → 2023-03-26 | Outpatient (CLI) | payer MEDICARE ==
[~2023-03-26] MED LIST changes: +ACET-683 PO; +ASPI81TA26 PO; +ATOR80TA59 PO; +HYDR-3715 PO; +IBUP-1114 PO; +PANT40TA29 PO
[2023-03-26 10:36] LABS: ALBUMIN 3.4 G/DL (3.2-5.2); ALKALINE PHOSPHATASE 77 U/L (46-116); ALT/SGPT 18 U/L (7.0-40); AST/SGOT 18 U/L (<34); BILIRUBIN,TOTAL 0.4 MG/DL (0.3-1.2); BLOOD UREA NITROGEN 11 MG/DL (9-23); CALCIUM LEVEL 8.8 MG/DL (8.3-10.6); CARBON DIOXIDE LEVEL 27 MMOL/L (20-31); CHLORIDE LEVEL 100 MMOL/L (98-107); CREATININE FOR GFR 0.54 MG/DL (0.55-1.30); GLOMERULAR FILTRATION RATE > 60.0 (>39); GLUCOSE, FASTING 98 MG/DL (74-106); POTASSIUM SERUM 4.2 MMOL/L (3.5-5.1); SODIUM LEVEL 134 MMOL/L (136-145); TOTAL PROTEIN 5.8 G/DL (5.7-8.2)
== END ==
LOC: M LAB 08:54
PROVIDERS: ATTEND General Practice
DX: C34.11 Malignant neoplasm of upper lobe, right bronchus or lung (principal)

== ENCOUNTER → 2023-04-03 | Outpatient (CLI) | payer MEDICARE ==
[~2023-04-03] MED LIST changes: +ISOVUE-370 76% 100ML VIAL As Ordered ONE
== END ==
LOC: M RAD 13:18
PROVIDERS: ATTEND General Practice
DX: C34.90 Malignant neoplasm of unspecified part of unspecified bronchus or lung (principal)
CPT/HCPCS: 71260; Q9967

== ENCOUNTER → 2023-04-06 | Outpatient (CLI) | payer MEDICARE ==
[~2023-04-06] MED LIST changes: -FLUT11IN INH; +FLUT12AE6 INH; -ISOVUE-370 76% 100ML VIAL As Ordered ONE
== END ==
LOC: M ONCR 10:39
PROVIDERS: ATTEND General Practice
DX: C34.11 Malignant neoplasm of upper lobe, right bronchus or lung (principal); C79.51 Secondary malignant neoplasm of bone; Z92.3 Personal history of irradiation; F17.210 Nicotine dependence, cigarettes, uncomplicated; R63.4 Abnormal weight loss; Z71.2 Person consulting for explanation of examination or test findings; Z79.899 Other long term (current) drug therapy; Z79.891 Long term (current) use of opiate analgesic; Z79.82 Long term (current) use of aspirin

== ENCOUNTER → 2023-04-20 | Outpatient (CLI) | payer MEDICARE ==
[~2023-04-20] MED LIST changes: +GASTROGRAFIN SOLUTION 30ML As Ordered ONE; +ISOVUE-370 76% 100ML VIAL As Ordered ONE
== END ==
LOC: M RAD 11:22
PROVIDERS: ATTEND General Practice
DX: C34.90 Malignant neoplasm of unspecified part of unspecified bronchus or lung (principal)
CPT/HCPCS: 71250; 74176; Q9963

== ENCOUNTER → 2023-04-27 | Outpatient (CLI) | payer MEDICARE ==
[~2023-04-27] MED LIST changes: -GASTROGRAFIN SOLUTION 30ML As Ordered ONE; -ISOVUE-370 76% 100ML VIAL As Ordered ONE
== END ==
LOC: M ONCR 10:28
PROVIDERS: ATTEND General Practice
DX: C34.11 Malignant neoplasm of upper lobe, right bronchus or lung (principal); C79.51 Secondary malignant neoplasm of bone; F17.210 Nicotine dependence, cigarettes, uncomplicated; F12.90 Cannabis use, unspecified, uncomplicated; J44.9 Chronic obstructive pulmonary disease, unspecified; Z71.2 Person consulting for explanation of examination or test findings; Z79.02 Long term (current) use of antithrombotics/antiplatelets; Z79.82 Long term (current) use of aspirin; Z79.891 Long term (current) use of opiate analgesic; Z79.899 Other long term (current) drug therapy; Z92.3 Personal history of irradiation

== ENCOUNTER → 2023-05-21 | Outpatient (RCR) | payer MEDICARE ==
[~2023-05-21] MED LIST changes: +ALB2.5NEB NEB; +NEBU1EAC78 MC
== END ==
LOC: M ONCR 05-08 10:26
PROVIDERS: ATTEND General Practice
DX: C34.11 Malignant neoplasm of upper lobe, right bronchus or lung (principal)

== ENCOUNTER 2023-05-22 10:29 | Outpatient (RCR) | payer MEDICARE ==
[~2023-05-22 10:29] MED LIST changes: -ALB2.5NEB NEB; -NEBU1EAC78 MC
[2023-05-24] MEDS ORDERED: OXYC-517 PO ×2 (08:18→08:37)
[2023-05-24] MEDS ORDERED: PRED20TA PO (17:27)
[2023-05-24] MEDS ORDERED: ALB2.5NEB NEB (17:27)
[2023-05-24] MEDS ORDERED: NEBU1EAC78 MC (17:28)
[2023-05-28] MEDS ORDERED: OXYC-517 PO (08:07)
[2023-06-28] MEDS ORDERED: OXYC-517 PO (15:28)
== END 2023-06-21 ==
LOC: M ONCR 10:29
PROVIDERS: ATTEND General Practice
DX: Z51.0 Encounter for antineoplastic radiation therapy (principal); C34.11 Malignant neoplasm of upper lobe, right bronchus or lung; C79.51 Secondary malignant neoplasm of bone

== ENCOUNTER 2023-05-24 15:13 | Emergency (ER) | payer MEDICARE ==
[~2023-05-24] VITALS: Ht 149.9 cm; Wt 44.2 kg
[2023-05-24 16:01] LABS: BASO % 0.5 % (0.0-1.0); EOS # 0.1 10^3/uL (0.0-0.5); HEMATOCRIT 33.4 % (36.0-47.0); HEMOGLOBIN 10.9 g/dl (12.0-15.5); LYMPH # 0.6 10^3/uL (1.5-5.0); LYMPH % 9.7 % (24.0-44.0); MEAN CORPUSCULAR HEMOGLOBIN 28.3 pg (27.0-33.0); MEAN CORPUSCULAR HGB CONC 32.6 g/dl (32.0-36.5); MEAN CORPUSCULAR VOLUME 86.8 fl (80.0-96.0); MONO # 0.7 10^3/uL (0.0-0.8); NEUTROPHILS % 77.5 % (36.0-66.0); PLATELET COUNT, AUTOMATED 404 10^3/uL (150-450); RED BLOOD COUNT 3.85 10^6/uL (4.00-5.40); WHITE BLOOD COUNT 6.5 10^3/uL (4.0-10.0)
[2023-05-24] MEDS: IPRATROPIUM 0.5MG/ALBUTEROL 2.5MG INH SOL UD 3ML (DUONEB) NEB SCH (16:11)
[2023-05-24 16:28] LABS: ALBUMIN 3.1 G/DL (3.2-5.2); ALKALINE PHOSPHATASE 88 U/L (46-116); ALT/SGPT 11 U/L (7.0-40); AST/SGOT 14 U/L (<34); BILIRUBIN,DIRECT 0.3 MG/DL (<0.4); BILIRUBIN,TOTAL 0.3 MG/DL (0.3-1.2); BLOOD UREA NITROGEN 7 MG/DL (9-23); CALCIUM LEVEL 8.8 MG/DL (8.3-10.6); CARBON DIOXIDE LEVEL 26 MMOL/L (20-31); CHLORIDE LEVEL 101 MMOL/L (98-107); CREATININE FOR GFR 0.34 MG/DL (0.55-1.30); GLOMERULAR FILTRATION RATE > 60.0 (>39); GLUCOSE, FASTING 106 MG/DL (74-106); POTASSIUM SERUM 3.9 MMOL/L (3.5-5.1); SODIUM LEVEL 137 MMOL/L (136-145); TOTAL PROTEIN 5.8 G/DL (5.7-8.2)
[2023-05-24 16:30] LABS: THYROXINE (T4) 12.3 UG/DL (4.5-10.9)
[2023-05-24 16:31] LABS: THYROID STIMULATING HORMONE 0.263 uIU/ML (0.55-4.78)
[2023-05-24] MEDS ORDERED: PERCOCET 5MG/325MG TAB PO ONE (17:00)
[2023-05-24 17:17] VITALS: BP 158/71; TEMP 97.8; O2SAT 100
[2023-05-24 17:25] VITALS: O2SAT 98
[2023-05-24] MEDS ORDERED: PRED20TA PO (17:27)
[2023-05-24] MEDS ORDERED: ALB2.5NEB NEB (17:27)
[2023-05-24] MEDS ORDERED: NEBU1EAC78 MC (17:28)
== END 2023-05-24 17:40 | disposition home or self-care (01) ==
LOC: M ED 15:13
DX: J44.1 Chronic obstructive pulmonary disease with (acute) exacerbation (principal); I11.9 Hypertensive heart disease without heart failure; I25.10 Atherosclerotic heart disease of native coronary artery without angina pectoris; I25.2 Old myocardial infarction; E78.5 Hyperlipidemia, unspecified; C34.11 Malignant neoplasm of upper lobe, right bronchus or lung; C79.49 Secondary malignant neoplasm of other parts of nervous system; C78.1 Secondary malignant neoplasm of mediastinum; F17.200 Nicotine dependence, unspecified, uncomplicated; Z79.899 Other long term (current) drug therapy; Z79.82 Long term (current) use of aspirin; Z79.51 Long term (current) use of inhaled steroids

== ENCOUNTER 2023-08-02 09:34 | Emergency (ER) | payer MEDICARE ==
[~2023-08-02] VITALS: Ht 152.4 cm; Wt 40.0 kg
[~2023-08-02 09:34] MED LIST changes: +ALB2.5NEB NEB; +NEBU1EAC78 MC
[2023-08-02 09:52] VITALS: TEMP 98
[2023-08-02 10:23] LABS: VENOUS BASE EXCESS -0.8 (-2.0-2.0); VENOUS HCO3 25.1 MMOL/L (23.0-27.0); VENOUS O2 SATURATION 67.8 % (60.0-80.0); VENOUS PARTIAL PRESSURE O2 36.5 mmHg (30.0-50.0); VENOUS PH 7.345 UNITS (7.330-7.430); VENOUS STANDARD HCO3 23.2 MMOL/L; VENOUS TOTAL CO2 26.5 MMOL/L (24.0-28.0)
[2023-08-02 10:30] VITALS: BP 140/65; O2SAT 99
[2023-08-02 10:30] LABS: BASO # 0.1 10^3/uL (0.0-0.2); BASO % 1.1 % (0.0-1.0); EOS # 0.6 10^3/uL (0.0-0.5); EOS % 6.6 % (0.0-3.0); HEMATOCRIT 29.7 % (36.0-47.0); HEMOGLOBIN 9.7 g/dl (12.0-15.5); LYMPH # 0.7 10^3/uL (1.5-5.0); LYMPH % 8.3 % (24.0-44.0); MEAN CORPUSCULAR HEMOGLOBIN 28.3 pg (27.0-33.0); MEAN CORPUSCULAR HGB CONC 32.7 g/dl (32.0-36.5); MEAN CORPUSCULAR VOLUME 86.6 fl (80.0-96.0); MONO # 0.9 10^3/uL (0.0-0.8); MONO % 10.1 % (2.0-8.0); NEUTROPHILS # 6.2 10^3/uL (1.5-8.5); NEUTROPHILS % 73.5 % (36.0-66.0); PLATELET COUNT, AUTOMATED 677 10^3/uL (150-450); RED BLOOD COUNT 3.43 10^6/uL (4.00-5.40); WHITE BLOOD COUNT 8.5 10^3/uL (4.0-10.0)
[2023-08-02 10:41] LABS: INR 1.12; PROTHROMBIN TIME 14.1 SECONDS (12.5-14.5)
[2023-08-02 11:02] LABS: ALKALINE PHOSPHATASE 80 U/L (46-116); ALT/SGPT 14 U/L (7.0-40); AST/SGOT 15 U/L (<34); BILIRUBIN,DIRECT 0.1 MG/DL (<0.4); BILIRUBIN,TOTAL 0.4 MG/DL (0.3-1.2); BLOOD UREA NITROGEN 7 MG/DL (9-23); CARBON DIOXIDE LEVEL 26 MMOL/L (20-31); CHLORIDE LEVEL 101 MMOL/L (98-107); CREATININE FOR GFR 0.51 MG/DL (0.55-1.30); GLOMERULAR FILTRATION RATE > 60.0 (>39); GLUCOSE, FASTING 100 MG/DL (74-106); POTASSIUM SERUM 4.4 MMOL/L (3.5-5.1); SODIUM LEVEL 134 MMOL/L (136-145); TOTAL PROTEIN 5.7 G/DL (5.7-8.2)
[2023-08-02 11:06] LABS: THYROID STIMULATING HORMONE 1.536 uIU/ML (0.55-4.78); THYROXINE (T4) 13.1 UG/DL (4.5-10.9)
[2023-08-02 11:15] LABS: PROCALCITONIN <0.04 ng/ml
[2023-08-02 11:18] LABS: CPK CREATINE PHOSPHOKINASE 73 U/L (34-145); MB/CK RELATIVE INDEX 1.36 (< OR =4)
[2023-08-02] MEDS ORDERED: PRED20TA PO ×2 (11:34→11:35)
[2023-08-02] MEDS ORDERED: IPRATROPIUM 0.5MG/ALBUTEROL 2.5MG INH SOL UD 3ML (DUONEB) NEB ONE (11:35)
[2023-08-02 12:04] LABS: CK-MB VALUE MASS 1.1 NG/ML (<3.6)
[2023-08-02 12:06] LABS: MB/CK RELATIVE INDEX 1.54 (< OR =4)
== END 2023-08-02 11:50 | disposition home or self-care (01) ==
LOC: EDBD 09:34 → M ED 09:34
DX: J44.1 Chronic obstructive pulmonary disease with (acute) exacerbation (principal); I25.10 Atherosclerotic heart disease of native coronary artery without angina pectoris; I10 Essential (primary) hypertension; E11.9 Type 2 diabetes mellitus without complications; J44.9 Chronic obstructive pulmonary disease, unspecified; E78.5 Hyperlipidemia, unspecified; E03.9 Hypothyroidism, unspecified; C34.90 Malignant neoplasm of unspecified part of unspecified bronchus or lung; F17.200 Nicotine dependence, unspecified, uncomplicated; Z79.82 Long term (current) use of aspirin; Z79.899 Other long term (current) drug therapy

== ENCOUNTER 2023-08-19 17:02 | Observation (INO) | payer MEDICARE ==
[~2023-08-19] VITALS: Ht 149.9 cm; Wt 34.7 kg
[2023-08-19 17:51] LABS: BASO % 0.2 % (0.0-1.0); EOS # 0.3 10^3/uL (0.0-0.5); EOS % 2.3 % (0.0-3.0); HEMATOCRIT 36.1 % (36.0-47.0); HEMOGLOBIN 12.1 g/dl (12.0-15.5); LYMPH # 1.1 10^3/uL (1.5-5.0); LYMPH % 9.2 % (24.0-44.0); MEAN CORPUSCULAR HEMOGLOBIN 28.6 pg (27.0-33.0); MEAN CORPUSCULAR HGB CONC 33.5 g/dl (32.0-36.5); MEAN CORPUSCULAR VOLUME 85.3 fl (80.0-96.0); MONO # 1.1 10^3/uL (0.0-0.8); MONO % 8.8 % (2.0-8.0); NEUTROPHILS # 9.5 10^3/uL (1.5-8.5); NEUTROPHILS % 79.2 % (36.0-66.0); PLATELET COUNT, AUTOMATED 429 10^3/uL (150-450); RED BLOOD COUNT 4.23 10^6/uL (4.00-5.40)
[2023-08-19 18:25] LABS: ALBUMIN 2.7 G/DL (3.2-5.2); ALKALINE PHOSPHATASE 92 U/L (46-116); ALT/SGPT < 9 U/L (7.0-40); AST/SGOT 12 U/L (<34); BILIRUBIN,TOTAL 0.3 MG/DL (0.3-1.2); BLOOD UREA NITROGEN 12 MG/DL (9-23); CALCIUM LEVEL 8.9 MG/DL (8.3-10.6); CARBON DIOXIDE LEVEL 29 MMOL/L (20-31); CHLORIDE LEVEL 96 MMOL/L (98-107); CREATININE FOR GFR 0.39 MG/DL (0.55-1.30); GLOMERULAR FILTRATION RATE > 60.0 (>39); GLUCOSE, FASTING 94 MG/DL (74-106); POTASSIUM SERUM 3.1 MMOL/L (3.5-5.1); SODIUM LEVEL 134 MMOL/L (136-145); TOTAL PROTEIN 5.6 G/DL (5.7-8.2)
[2023-08-19 18:32] LABS: INR 1.05; PROTHROMBIN TIME 13.4 SECONDS (12.5-14.5)
[2023-08-19] MEDS ORDERED: POTASSIUM CHLORIDE 10MEQ SR TABLET PO ONE (18:50)
[2023-08-19] MEDS ORDERED: ISOVUE-370 76% 100ML VIAL As Ordered ONE (20:45)
[2023-08-19] MEDS ORDERED: POTASSIUM CHLORIDE 10% LIQ 20MEQ/15ML UDC PO ONE (22:25)
[2023-08-19] MEDS ORDERED: MORPHINE 2 MG/ML 1ML VIAL IV ONE (22:40)
[2023-08-19] MEDS ORDERED: ACETAMINOPHEN TAB 650MG DOSE (2X325MG) PO ONE (22:55)
[2023-08-19 23:37] LABS: RSV AMPLIFICATION NEGATIVE (NEGATIVE)
[2023-08-20] MEDS ORDERED: PANTOPRAZOLE 40MG TAB (PROTONIX) PO ONE (03:15)
[2023-08-20] MEDS ORDERED: ALBUTEROL 90 MCG/ACT 8GM HFA INHALER INH ONE (03:15)
[2023-08-20] MEDS ORDERED: ATORVASTATIN 20 MG TAB PO ONE (06:25)
[2023-08-20] MEDS ORDERED: ASPIRIN 81MG CHEW TABLET PO ONE (06:25)
[2023-08-20] MEDS ORDERED: CLOPIDOGREL 75 MG TAB PO ONE (06:25)
[2023-08-20] MEDS ORDERED: amLODIPine 5 MG TAB PO ONE (06:25)
[2023-08-20] MEDS ORDERED: MED REC CURRENTLY UNOBTAINABLE XX SCH (06:35)
[2023-08-20] MEDS ORDERED: AMLO2.5T3 PO (09:46)
[2023-08-20] MEDS ORDERED: VENTAER INH (09:46)
[2023-08-20] MEDS ORDERED: ALBU2.5V10 INH (09:46)
[2023-08-20] MEDS ORDERED: ATOR1TAB21 PO (09:46)
[2023-08-20] MEDS ORDERED: PANT-23 PO (09:46)
[2023-08-20] MEDS ORDERED: HOME MED LIST COMPLETE! XX SCH (09:50)
[2023-08-20] MEDS ORDERED: ALBUTEROL SULFATE 2.5MG/0.5ML INH NEB SOLN INH PRN (12:55)
[2023-08-20] MEDS: IPRATROPIUM 0.5MG/ALBUTEROL 2.5MG INH SOL UD 3ML (DUONEB) NEB SCH ×2 (13:37→20:20)
[2023-08-20] MEDS: METOPROLOL SUCC (TopROL XL) 50MG **XL** TAB PO SCH (14:00)
[2023-08-20] MEDS ORDERED: MORPHINE 2 MG/ML 1ML VIAL IV PRN (15:15)
[2023-08-20] MEDS ORDERED: ONDANSETRON 4MG 2ML VIAL IV PRN (15:15)
[2023-08-20] MEDS ORDERED: BISACODYL 10MG SUPP PR PRN (15:15)
[2023-08-20] MEDS: ACETAMINOPHEN TAB 650MG DOSE (2X325MG) PO PRN ×2 (16:02→20:10)
[2023-08-20] MEDS: PANTOPRAZOLE 40MG TAB (PROTONIX) PO SCH (20:10)
[2023-08-20] MEDS: oxyCODONE 5MG TAB PO PRN (23:20)
[2023-08-21] MEDS: ACETAMINOPHEN TAB 650MG DOSE (2X325MG) PO PRN ×5 (04:23→23:27)
[2023-08-21] MEDS: IPRATROPIUM 0.5MG/ALBUTEROL 2.5MG INH SOL UD 3ML (DUONEB) NEB SCH ×4 (07:41→19:29)
[2023-08-21] MEDS: METOPROLOL SUCC (TopROL XL) 50MG **XL** TAB PO SCH (09:00)
[2023-08-21] MEDS: ASPIRIN 81MG ENTERIC TABLET PO SCH (09:03)
[2023-08-21] MEDS: CLOPIDOGREL 75 MG TAB PO SCH (09:04)
[2023-08-21] MEDS: ATORVASTATIN 20 MG TAB PO SCH (09:04)
[2023-08-21] MEDS: oxyCODONE 5MG TAB PO PRN ×2 (10:52→20:41)
[2023-08-21] MEDS: PANTOPRAZOLE 40MG TAB (PROTONIX) PO SCH (20:41)
[2023-08-22] MEDS: oxyCODONE 5MG TAB PO PRN ×5 (01:30→19:50)
[2023-08-22] MEDS: ALBUTEROL SULFATE 2.5MG/0.5ML INH NEB SOLN NEB PRN ×2 (01:32→18:14)
[2023-08-22] MEDS: ACETAMINOPHEN TAB 650MG DOSE (2X325MG) PO PRN (03:38)
[2023-08-22] MEDS: IPRATROPIUM 0.5MG/ALBUTEROL 2.5MG INH SOL UD 3ML (DUONEB) NEB SCH ×4 (07:21→20:10)
[2023-08-22] MEDS: ASPIRIN 81MG ENTERIC TABLET PO SCH (08:51)
[2023-08-22] MEDS: CLOPIDOGREL 75 MG TAB PO SCH (08:52)
[2023-08-22] MEDS: ATORVASTATIN 20 MG TAB PO SCH (08:52)
[2023-08-22] MEDS: METOPROLOL SUCC (TopROL XL) 50MG **XL** TAB PO SCH (08:52)
[2023-08-22 11:36] LABS: HEMATOCRIT 29.3 % (36.0-47.0); HEMOGLOBIN 9.8 g/dl (12.0-15.5); MEAN CORPUSCULAR HEMOGLOBIN 28.9 pg (27.0-33.0); MEAN CORPUSCULAR HGB CONC 33.4 g/dl (32.0-36.5); MEAN CORPUSCULAR VOLUME 86.4 fl (80.0-96.0); PLATELET COUNT, AUTOMATED 371 10^3/uL (150-450); RED BLOOD COUNT 3.39 10^6/uL (4.00-5.40); WHITE BLOOD COUNT 16.5 10^3/uL (4.0-10.0)
[2023-08-22 12:07] LABS: ALBUMIN 2.2 G/DL (3.2-5.2); ALKALINE PHOSPHATASE 75 U/L (46-116); ALT/SGPT 10 U/L (7.0-40); AST/SGOT 13 U/L (<34); BILIRUBIN,TOTAL 0.5 MG/DL (0.3-1.2); BLOOD UREA NITROGEN 12 MG/DL (9-23); CALCIUM LEVEL 8.6 MG/DL (8.3-10.6); CARBON DIOXIDE LEVEL 29 MMOL/L (20-31); CHLORIDE LEVEL 98 MMOL/L (98-107); CREATININE FOR GFR 0.43 MG/DL (0.55-1.30); GLOMERULAR FILTRATION RATE > 60.0 (>39); GLUCOSE, FASTING 76 MG/DL (74-106); SODIUM LEVEL 134 MMOL/L (136-145); TOTAL PROTEIN 4.9 G/DL (5.7-8.2)
[2023-08-22 12:16] VITALS: BP 130/51; TEMP 98.1; O2SAT 97
[2023-08-22] MEDS: PANTOPRAZOLE 40MG TAB (PROTONIX) PO SCH (20:34)
[2023-08-23] MEDS: ALBUTEROL SULFATE 2.5MG/0.5ML INH NEB SOLN NEB PRN ×2 (02:11→19:55)
[2023-08-23] MEDS: oxyCODONE 5MG TAB PO PRN ×5 (02:22→23:20)
[2023-08-23] MEDS: IPRATROPIUM 0.5MG/ALBUTEROL 2.5MG INH SOL UD 3ML (DUONEB) NEB SCH ×4 (06:03→19:02)
[2023-08-23] MEDS: ATORVASTATIN 20 MG TAB PO SCH (09:09)
[2023-08-23] MEDS: ASPIRIN 81MG ENTERIC TABLET PO SCH (09:09)
[2023-08-23] MEDS: CLOPIDOGREL 75 MG TAB PO SCH (09:12)
[2023-08-23] MEDS: METOPROLOL SUCC (TopROL XL) 50MG **XL** TAB PO SCH (09:12)
[2023-08-23] MEDS ORDERED: LORazepam 2 MG/ML 1ML VIAL IV PRN (20:05)
[2023-08-23] MEDS: PANTOPRAZOLE 40MG TAB (PROTONIX) PO SCH (20:41)
[2023-08-23] MEDS: LORazepam 1 MG TAB PO PRN (20:42)
[2023-08-24] MEDS: LORazepam 1 MG TAB PO PRN ×3 (05:19→21:54)
[2023-08-24] MEDS: oxyCODONE 5MG TAB PO PRN ×3 (05:20→21:56)
[2023-08-24] MEDS: ALBUTEROL SULFATE 2.5MG/0.5ML INH NEB SOLN NEB PRN (05:41)
[2023-08-24] MEDS: IPRATROPIUM 0.5MG/ALBUTEROL 2.5MG INH SOL UD 3ML (DUONEB) NEB SCH ×4 (08:18→19:05)
[2023-08-24] MEDS: CLOPIDOGREL 75 MG TAB PO SCH (09:34)
[2023-08-24] MEDS: ATORVASTATIN 20 MG TAB PO SCH (09:34)
[2023-08-24] MEDS: METOPROLOL SUCC (TopROL XL) 50MG **XL** TAB PO SCH (09:34)
[2023-08-24] MEDS: ASPIRIN 81MG ENTERIC TABLET PO SCH (09:34)
[2023-08-24 14:00] VITALS: TEMP 97.7; O2SAT 98
[2023-08-24] MEDS: PANTOPRAZOLE 40MG TAB (PROTONIX) PO SCH (22:17)
[2023-08-25] MEDS: oxyCODONE 5MG TAB PO PRN ×3 (07:33→22:07)
[2023-08-25] MEDS: ATORVASTATIN 20 MG TAB PO SCH (07:33)
[2023-08-25] MEDS: CLOPIDOGREL 75 MG TAB PO SCH (07:33)
[2023-08-25] MEDS: ASPIRIN 81MG ENTERIC TABLET PO SCH (07:34)
[2023-08-25] MEDS: METOPROLOL SUCC (TopROL XL) 50MG **XL** TAB PO SCH (07:39)
[2023-08-25] MEDS: IPRATROPIUM 0.5MG/ALBUTEROL 2.5MG INH SOL UD 3ML (DUONEB) NEB SCH ×4 (08:10→19:20)
[2023-08-25] MEDS: LORazepam 1 MG TAB PO PRN (17:58)
[2023-08-25] MEDS: PANTOPRAZOLE 40MG TAB (PROTONIX) PO SCH (21:59)
[2023-08-26] MEDS: ALBUTEROL SULFATE 2.5MG/0.5ML INH NEB SOLN NEB PRN (03:22)
[2023-08-26] MEDS: oxyCODONE 5MG TAB PO PRN ×5 (05:49→20:15)
[2023-08-26] MEDS: IPRATROPIUM 0.5MG/ALBUTEROL 2.5MG INH SOL UD 3ML (DUONEB) NEB SCH ×4 (08:02→19:55)
[2023-08-26] MEDS: ATORVASTATIN 20 MG TAB PO SCH (09:00)
[2023-08-26] MEDS: METOPROLOL SUCC (TopROL XL) 50MG **XL** TAB PO SCH (09:00)
[2023-08-26] MEDS: CLOPIDOGREL 75 MG TAB PO SCH (09:09)
[2023-08-26] MEDS: ASPIRIN 81MG ENTERIC TABLET PO SCH (09:09)
[2023-08-26] MEDS: LORazepam 1 MG TAB PO PRN (18:35)
[2023-08-26] MEDS: PANTOPRAZOLE 40MG TAB (PROTONIX) PO SCH (20:11)
[2023-08-27] MEDS: LORazepam 1 MG TAB PO PRN (03:41)
[2023-08-27] MEDS: oxyCODONE 5MG TAB PO PRN ×2 (03:43→15:08)
[2023-08-27] MEDS: IPRATROPIUM 0.5MG/ALBUTEROL 2.5MG INH SOL UD 3ML (DUONEB) NEB SCH ×4 (08:29→20:52)
[2023-08-27] MEDS: ATORVASTATIN 20 MG TAB PO SCH (08:34)
[2023-08-27] MEDS: ASPIRIN 81MG ENTERIC TABLET PO SCH (08:34)
[2023-08-27] MEDS: METOPROLOL SUCC (TopROL XL) 50MG **XL** TAB PO SCH (08:41)
[2023-08-27] MEDS: CLOPIDOGREL 75 MG TAB PO SCH (08:41)
[2023-08-27] MEDS: SCOPOLAMINE 1MG TRANSDERMAL PATCH TOP PRN (15:10)
[2023-08-27] MEDS: PANTOPRAZOLE 40MG TAB (PROTONIX) PO SCH (20:15)
[2023-08-28] MEDS: LORazepam 1 MG TAB PO PRN ×3 (00:13→13:46)
[2023-08-28] MEDS: ALBUTEROL SULFATE 2.5MG/0.5ML INH NEB SOLN NEB PRN (01:17)
[2023-08-28] MEDS: IPRATROPIUM 0.5MG/ALBUTEROL 2.5MG INH SOL UD 3ML (DUONEB) NEB SCH ×4 (07:17→20:09)
[2023-08-28] MEDS: oxyCODONE 5MG TAB PO PRN ×2 (08:36→13:46)
[2023-08-28] MEDS: ASPIRIN 81MG ENTERIC TABLET PO SCH (08:36)
[2023-08-28] MEDS: ATORVASTATIN 20 MG TAB PO SCH (08:36)
[2023-08-28] MEDS: CLOPIDOGREL 75 MG TAB PO SCH (08:36)
[2023-08-28 09:00] VITALS: BP 81/54
[2023-08-28] MEDS: METOPROLOL SUCC (TopROL XL) 50MG **XL** TAB PO SCH (09:00)
[2023-08-28] MEDS: PANTOPRAZOLE 40MG TAB (PROTONIX) PO SCH (21:00)
[2023-08-29] MEDS: oxyCODONE 5MG TAB PO PRN ×2 (00:55→18:32)
[2023-08-29] MEDS: LORazepam 1 MG TAB PO PRN ×3 (00:55→14:28)
[2023-08-29] MEDS: IPRATROPIUM 0.5MG/ALBUTEROL 2.5MG INH SOL UD 3ML (DUONEB) NEB SCH ×4 (07:02→19:24)
[2023-08-29] MEDS: METOPROLOL SUCC (TopROL XL) 50MG **XL** TAB PO SCH (08:41)
[2023-08-29] MEDS: ATORVASTATIN 20 MG TAB PO SCH (08:44)
[2023-08-29] MEDS: ASPIRIN 81MG ENTERIC TABLET PO SCH (08:44)
[2023-08-29] MEDS: CLOPIDOGREL 75 MG TAB PO SCH (08:45)
[2023-08-29] MEDS: PANTOPRAZOLE 40MG TAB (PROTONIX) PO SCH (21:00)
[2023-08-30] MEDS: LORazepam 1 MG TAB PO PRN ×3 (00:35→20:09)
[2023-08-30] MEDS: oxyCODONE 5MG TAB PO PRN (05:27)
[2023-08-30] MEDS: METOPROLOL SUCC (TopROL XL) 50MG **XL** TAB PO SCH (07:43)
[2023-08-30] MEDS: IPRATROPIUM 0.5MG/ALBUTEROL 2.5MG INH SOL UD 3ML (DUONEB) NEB SCH ×4 (07:52→19:36)
[2023-08-30] MEDS: SCOPOLAMINE 1MG TRANSDERMAL PATCH TOP PRN (09:55)
[2023-08-30] MEDS: CLOPIDOGREL 75 MG TAB PO SCH (09:56)
[2023-08-30] MEDS: ASPIRIN 81MG ENTERIC TABLET PO SCH (09:56)
[2023-08-30] MEDS: ATORVASTATIN 20 MG TAB PO SCH (09:56)
[2023-08-30] MEDS: PANTOPRAZOLE 40MG TAB (PROTONIX) PO SCH (20:08)
[2023-08-31] MEDS: LORazepam 1 MG TAB PO PRN (04:33)
[2023-08-31] MEDS: IPRATROPIUM 0.5MG/ALBUTEROL 2.5MG INH SOL UD 3ML (DUONEB) NEB SCH (08:19)
[2023-08-31] MEDS: MORPHINE 10MG/0.5ML ORAL CONCENTRATE SOLUTION U/D SL PRN ×2 (09:54→18:16)
[2023-09-01] MEDS: MORPHINE 10MG/0.5ML ORAL CONCENTRATE SOLUTION U/D SL PRN ×2 (04:31→11:36)
[2023-09-01] MEDS: LORazepam 1 MG TAB PO PRN (04:31)
[2023-09-02] MEDS: MORPHINE 10MG/0.5ML ORAL CONCENTRATE SOLUTION U/D SL PRN ×2 (02:41→13:07)
[2023-09-03] MEDS: MORPHINE 10MG/0.5ML ORAL CONCENTRATE SOLUTION U/D SL PRN ×2 (11:27→22:17)
[2023-09-03] MEDS: LORazepam 1 MG TAB PO PRN (22:17)
[2023-09-04] MEDS: LORazepam 1 MG TAB PO PRN ×4 (08:15→23:35)
[2023-09-04] MEDS: MORPHINE 10MG/0.5ML ORAL CONCENTRATE SOLUTION U/D SL PRN ×5 (08:16→16:37)
[2023-09-05] MEDS: MORPHINE 10MG/0.5ML ORAL CONCENTRATE SOLUTION U/D SL PRN ×3 (04:32→14:34)
[2023-09-05 05:32] VITALS: O2SAT 96
[2023-09-05] MEDS: LORazepam 1 MG TAB PO PRN ×2 (06:43→14:34)
[2023-09-06] MEDS: ALBUTEROL SULFATE 2.5MG/0.5ML INH NEB SOLN NEB PRN ×2 (02:51→11:00)
[2023-09-06] MEDS: MORPHINE 10MG/0.5ML ORAL CONCENTRATE SOLUTION U/D SL PRN ×5 (02:55→23:53)
[2023-09-06] MEDS: LORazepam 1 MG TAB PO PRN ×4 (02:55→20:54)
[2023-09-06] MEDS: SCOPOLAMINE 1MG TRANSDERMAL PATCH TOP PRN (20:56)
[2023-09-07] MEDS: MORPHINE 10MG/0.5ML ORAL CONCENTRATE SOLUTION U/D SL PRN (03:53)
[2023-09-07] MEDS: LORazepam 1 MG TAB PO PRN (03:53)
[2023-09-08] MEDS: MORPHINE 10MG/0.5ML ORAL CONCENTRATE SOLUTION U/D SL PRN ×2 (07:42→18:23)
[2023-09-08] MEDS: LORazepam 1 MG TAB PO PRN (15:30)
[2023-09-09] MEDS: LORazepam 1 MG TAB PO PRN (07:55)
[2023-09-09] MEDS: MORPHINE 10MG/0.5ML ORAL CONCENTRATE SOLUTION U/D SL PRN ×2 (07:56→10:11)
[2023-09-10] MEDS: MORPHINE 10MG/0.5ML ORAL CONCENTRATE SOLUTION U/D SL PRN ×3 (02:00→14:05)
[2023-09-10] MEDS: LORazepam 1 MG TAB PO PRN (14:05)
[2023-09-11] MEDS: MORPHINE 10MG/0.5ML ORAL CONCENTRATE SOLUTION U/D SL PRN ×4 (04:00→18:02)
[2023-09-11] MEDS: LORazepam 1 MG TAB PO PRN ×3 (07:48→18:02)
[2023-09-12] MEDS: LORazepam 1 MG TAB PO PRN (07:49)
[2023-09-13] MEDS: MORPHINE 10MG/0.5ML ORAL CONCENTRATE SOLUTION U/D SL PRN (07:58)
[2023-09-13] MEDS: LORazepam 1 MG TAB PO PRN ×2 (07:59→17:53)
[2023-09-14] MEDS: LORazepam 1 MG TAB PO PRN (03:12)
[2023-09-14] MEDS: MORPHINE 10MG/0.5ML ORAL CONCENTRATE SOLUTION U/D SL PRN (03:12)
[2023-09-15] MEDS: LORazepam 1 MG TAB PO PRN ×3 (06:31→18:23)
[2023-09-15] MEDS: MORPHINE 10MG/0.5ML ORAL CONCENTRATE SOLUTION U/D SL PRN ×3 (06:31→18:22)
[2023-09-16] MEDS: LORazepam 1 MG TAB PO PRN ×4 (09:17→22:57)
[2023-09-16] MEDS: SCOPOLAMINE 1MG TRANSDERMAL PATCH TOP PRN (22:57)
[2023-09-17] MEDS: LORazepam 1 MG TAB PO PRN (07:27)
== END 2023-09-17 14:00 | disposition expired ==
LOC: M ED 17:02 → M ED INP 08-20 11:27 → ENRESERV 08-20 14:30 → M MS5PR 08-20 14:36
PROVIDERS: ADMIT Student in an Organized Health Care Education/Training Program; ATTEND Internal Medicine Nephrology
DX: Z51.5 Encounter for palliative care (principal); C34.11 Malignant neoplasm of upper lobe, right bronchus or lung; C79.51 Secondary malignant neoplasm of bone; C78.1 Secondary malignant neoplasm of mediastinum; E43 Unspecified severe protein-calorie malnutrition; Z68.1 Body mass index [BMI] 19.9 or less, adult; J98.4 Other disorders of lung; G95.20 Unspecified cord compression; G82.20 Paraplegia, unspecified; G93.41 Metabolic encephalopathy; R53.1 Weakness; R26.89 Other abnormalities of gait and mobility; R05.9 Cough, unspecified; R06.02 Shortness of breath; J44.9 Chronic obstructive pulmonary disease, unspecified; I25.10 Atherosclerotic heart disease of native coronary artery without angina pectoris; I25.2 Old myocardial infarction; I10 Essential (primary) hypertension; D64.9 Anemia, unspecified; R73.03 Prediabetes; E78.5 Hyperlipidemia, unspecified; E03.9 Hypothyroidism, unspecified; Z87.09 Personal history of other diseases of the respiratory system; H40.9 Unspecified glaucoma; F17.210 Nicotine dependence, cigarettes, uncomplicated; Z66 Do not resuscitate; Z79.899 Other long term (current) drug therapy; Z79.82 Long term (current) use of aspirin; Z79.02 Long term (current) use of antithrombotics/antiplatelets
CPT/HCPCS: 36415; 71045; 72131; 72146; 80053; 81001; 85025; 85027; 85610; 87631; 87635; 94640; 97116; 97161; 97530; 99285; G0378